=== PATIENT | male | born 1965 | race Caucasian/White ===

== ENCOUNTER 2017-06-16 03:57 | Emergency (ER) | payer MEDICAID ==
[2017-06-16 04:09] VITALS: TEMP 97
[2017-06-16] MEDS ORDERED: DILTIAZEM 125 MG in SODIUM CHLORIDE 0.9% 100 ML IV ONE (04:10)
[2017-06-16] MEDS ORDERED: DILTIAZEM 5 MG/ML 5 ML VIAL IVP STA ×3 (04:10→05:21)
--- NOTE | 2017-06-16 04:14 | ED ---
General Adult HPI - General Chief complaint: Arrhythmia/Palpitations Stated complaint: Palpitations Time Seen by Provider: 06/16/17 04:07 Source: patient, family, RN notes reviewed Mode of arrival: wheelchair Limitations: no limitations - History of Present Illness Initial comments: Patient is a pleasant 81-year-old male presenting to the emergency Department with help patient's. Onset was a couple of hours ago while in bed. Patient feels his heart racing and flipping. Patient has had similar symptoms previously associated atrial fibrillation/atrial flutter. Patient has mild discomfort of his upper chest. Patient occasionally has this associated with his atrial fibrillation. Patient feels slightly short of breath and lightheaded. - Related Data Allergies Allergy/AdvReac Type Severity Reaction Status Date / Time No Known Allergies Allergy Verified 06/16/17 04:13 Review of Systems ROS Statement: Those systems with pertinent positive or pertinent negative responses have been documented in the HPI. ROS Other: All systems not noted in ROS Statement are negative. Constitutional: Denies: fever Eyes: Denies: eye pain ENT: Denies: ear pain Respiratory: Reports: dyspnea. Denies: cough Cardiovascular: Reports: chest pain, palpitations Endocrine: Denies: fatigue Gastrointestinal: Denies: abdominal pain Genitourinary: Denies: dysuria Musculoskeletal: Denies: back pain Skin: Denies: rash Neurological: Denies: weakness General Exam Limitations: no limitations General appearance: alert, in no apparent distress Head exam: Present: atraumatic Eye exam: Present: normal appearance, PERRL ENT exam: Present: normal oropharynx Neck exam: Present: normal inspection Respiratory exam: Present: normal lung sounds bilaterally Cardiovascular Exam: Present: tachycardia, irregular rhythm Expanded Peripheral pulses: 2+: Dorsalis Pedis (R), Dorsalis Pedis (L) GI/Abdominal exam: Present: soft. Absent: tenderness Extremities exam: Present: normal inspection. Absent: pedal edema, calf tenderness Neurological exam: Present: alert Psychiatric exam: Present: normal affect, normal mood Skin exam: Present: normal color Course Vital Signs 06/16/17 06/16/17 06/16/17 04:05 04:34 04:55 Temperature 97.0 F L Pulse Rate 156 H 151 H 160 H Respiratory 16 18 18 Rate Blood Pressure 118/87 105/68 77/60 O2 Sat by Pulse 98 100 100 Oximetry 06/16/17 06/16/17 06/16/17 04:59 05:07 05:10 Temperature Pulse Rate 158 H 135 H 138 H Respiratory 18 18 18 Rate Blood Pressure 104/59 94/65 O2 Sat by Pulse 100 98 Oximetry 06/16/17 05:20 Temperature Pulse Rate 138 H Respiratory 16 Rate Blood Pressure 106/56 O2 Sat by Pulse 99 Oximetry EKG Findings - EKG Comments: EKG Findings:: A. fib with RVR, rate 150. QRS 92. QT 316. QTC 499. Normal axis. Normal QRS. Nonspecific ST-T. Medical Decision Making - Medical Decision Making Patient has been given Cardizem bolus and drip. Repeat bolus will be provided. Heart rate has improved somewhat to around 135. Patient with continued symptoms. Dr. Pal has been paged for admission for Dr. Betancourt. Patient states she sees Dr. Abernathy and he will be consult. - Lab Data Result diagrams: 06/16/17 04:10 06/16/17 04:10 Lab Results 06/16/17 06/16/17 06/16/17 Range/Units 04:10 04:10 04:10 WBC 7.7 (3.8-10.6) k/uL RBC 5.66 (4.30-5.90) m/uL Hgb 17.6 H (13.0-17.5) gm/dL Hct 50.5 (39.0-53.0) % MCV 89.2 (80.0-100.0) fL MCH 31.2 (25.0-35.0) pg MCHC 34.9 (31.0-37.0) g/dL RDW 13.3 (11.5-15.5) % Plt Count 245 (150-450) k/uL Neutrophils % 56 % Lymphocytes % 30 % Monocytes % 7 % Eosinophils % 3 % Basophils % 1 % Neutrophils # 4.2 (1.3-7.7) k/uL Lymphocytes # 2.3 (1.0-4.8) k/uL Monocytes # 0.5 (0-1.0) k/uL Eosinophils # 0.2 (0-0.7) k/uL Basophils # 0.1 (0-0.2) k/uL PT (9.0-12.0) sec INR (<1.2) APTT (22.0-30.0) sec Sodium 139 (137-145) mmol/L Potassium 4.3 (3.5-5.1) mmol/L Chloride 104 (98-107) mmol/L Carbon Dioxide 24 (22-30) mmol/L Anion Gap 11 mmol/L BUN 22 H (9-20) mg/dL Creatinine 1.00 (0.66-1.25) mg/dL Est GFR (MDRD) Af Amer >60 (>60 ml/min/1.73 sqM) Est GFR (MDRD) Non-Af >60 (>60 ml/min/1.73 sqM) Glucose 98 (74-99) mg/dL Calcium 10.6 H (8.4-10.2) mg/dL Magnesium 2.1 (1.6-2.3) mg/dL Total Bilirubin 0.6 (0.2-1.3) mg/dL AST 26 (17-59) U/L ALT 35 (21-72) U/L Alkaline Phosphatase 75 (38-126) U/L Total Creatine Kinase 59 (55-170) U/L CK-MB (CK-2) 0.5 (0.0-2.4) ng/mL CK-MB (CK-2) Rel Index 0.8 Troponin I <0.012 (0.000-0.034) ng/mL Total Protein 7.9 (6.3-8.2) g/dL Albumin 4.8 (3.5-5.0) g/dL Free T4 1.00 (0.78-2.19) ng/dL Free T3 pg/mL 3.9 (2.8-5.3) pg/ml 06/16/17 Range/Units 04:10 WBC (3.8-10.6) k/uL RBC (4.30-5.90) m/uL Hgb (13.0-17.5) gm/dL Hct (39.0-53.0) % MCV (80.0-100.0) fL MCH (25.0-35.0) pg MCHC (31.0-37.0) g/dL RDW (11.5-15.5) % Plt Count (150-450) k/uL Neutrophils % % Lymphocytes % % Monocytes % % Eosinophils % % Basophils % % Neutrophils # (1.3-7.7) k/uL Lymphocytes # (1.0-4.8) k/uL Monocytes # (0-1.0) k/uL Eosinophils # (0-0.7) k/uL Basophils # (0-0.2) k/uL PT 10.1 (9.0-12.0) sec INR 1.0 (<1.2) APTT 23.0 (22.0-30.0) sec Sodium (137-145) mmol/L Potassium (3.5-5.1) mmol/L Chloride (98-107) mmol/L Carbon Dioxide (22-30) mmol/L Anion Gap mmol/L BUN (9-20) mg/dL Creatinine (0.66-1.25) mg/dL Est GFR (MDRD) Af Amer (>60 ml/min/1.73 sqM) Est GFR (MDRD) Non-Af (>60 ml/min/1.73 sqM) Glucose (74-99) mg/dL Calcium (8.4-10.2) mg/dL Magnesium (1.6-2.3) mg/dL Total Bilirubin (0.2-1.3) mg/dL AST (17-59) U/L ALT (21-72) U/L Alkaline Phosphatase (38-126) U/L Total Creatine Kinase (55-170) U/L CK-MB (CK-2) (0.0-2.4) ng/mL CK-MB (CK-2) Rel Index Troponin I (0.000-0.034) ng/mL Total Protein (6.3-8.2) g/dL Albumin (3.5-5.0) g/dL Free T4 (0.78-2.19) ng/dL Free T3 pg/mL (2.8-5.3) pg/ml - Radiology Data Radiology results: image reviewed (Chest x-ray shows no acute process) Critical Care Time Critical Care Time: Yes Total Critical Care Time: 31 Disposition Clinical Impression: Atrial fibrillation with RVR Disposition: ADMITTED IP TO THIS [facility] Referrals: Maurizio Betancourt MD [Primary Care Provider] - 1-2 days Decision Time: 05:32
[2017-06-16 04:25] LABS: Basophils # (A) 0.1 k/uL (0-0.2); Basophils % (A) 1 %; CH 32.6; CHCM 36.7; Eosinophils # (A) 0.2 k/uL (0-0.7); Eosinophils % (A) 3 %; HCT 50.5 % (39.0-53.0); HDW 2.56; HGB 17.6 gm/dL (13.0-17.5); Luc # (Auto) 0.33; Luc % (Auto) 4; Lymphocytes # (A) 2.3 k/uL (1.0-4.8); Lymphocytes % (A) 30 %; MCH 31.2 pg (25.0-35.0); MCHC 34.9 g/dL (31.0-37.0); MCV 89.2 fL (80.0-100.0); Mean Platelet Volume 8.2; Monocytes # (A) 0.5 k/uL (0-1.0); Monocytes % (A) 7 %; Neutrophils # (A) 4.2 k/uL (1.3-7.7); Neutrophils % (A) 56 %; RBC 5.66 m/uL (4.30-5.90); RDW 13.3 % (11.5-15.5); WBC 7.7 k/uL (3.8-10.6)
[2017-06-16 04:36] LABS: ALT 35 U/L (21-72); AST 26 U/L (17-59); Alkaline Phosphatase 75 U/L (38-126); Anion Gap 11 mmol/L; Blood Urea Nitrogen 22 mg/dL (9-20); Calcium 10.6 mg/dL (8.4-10.2); Carbon Dioxide 24 mmol/L (22-30); Chloride 104 mmol/L (98-107); Glucose 98 mg/dL (74-99); Magnesium 2.1 mg/dL (1.6-2.3); Non-African American GFR(MDRD) >60 (>60 ml/min/1.73 sqM); Potassium 4.3 mmol/L (3.5-5.1); Prothrombin Time 10.1 sec (9.0-12.0); Sodium 139 mmol/L (137-145); Total Bilirubin 0.6 mg/dL (0.2-1.3); Total Protein 7.9 g/dL (6.3-8.2)
[2017-06-16 04:44] LABS: Creatine Kinase 59 U/L (55-170)
--- NOTE | 2017-06-16 04:47 | XR ---
EXAM: XR Chest, 1 View CLINICAL HISTORY: Reason: dysrhythmia TECHNIQUE: Frontal view of the chest. COMPARISON: No relevant prior studies available. FINDINGS: Lungs: Unremarkable. No consolidation. Pleural space: Unremarkable. No effusion or pneumothorax. Heart: Unremarkable. No cardiomegaly. Mediastinum: Within normal limits. Bones/joints: No acute osseous abnormality. Tiny ossific density projecting along the superior margin of the right glenohumeral joint may be a small intra-articular body and/or related to prior injury. IMPRESSION: No acute process is seen within the chest, as above.
[2017-06-16] MEDS ORDERED: SODIUM CHLORIDE 0.9% 1,000 ML IV ONE (04:54)
[2017-06-16 04:57] LABS: Creatine Kinase MB 0.5 ng/mL (0.0-2.4); Troponin I <0.012 ng/mL (0.000-0.034)
[2017-06-16] MEDS ORDERED: NITROGLYCERIN SL TABS 0.4 MG TAB SUBLINGUAL PRN (05:28)
[2017-06-16] MEDS ORDERED: HEPARIN SODIUM,PORCINE 5,000 UNIT/ML 1 ML VIAL IV PRN (05:30)
[2017-06-16] MEDS ORDERED: HEPARIN SODIUM,PORCINE 5,000 UNIT/ML 1 ML VIAL IV ONE (05:30)
[2017-06-16] MEDS ORDERED: HEPARIN SODIUM,PORCINE/D5W PMX 25,000 UNIT in DEXTROSE/WATER 1 500ML.BAG IV SCH (05:30)
[2017-06-16 05:34] VITALS: RESP 18
[2017-06-16 05:55] VITALS: BP 109/65; PULSE 128
[2017-06-17] MEDS ORDERED: ASPIRIN 325 MG TAB PO SCH (09:00)
== END 2017-06-16 06:51 | disposition left against medical advice (07) ==
LOC: EC 03:57 → 6SEL 05:28 → UNDOADMIN 05:28 → EC 06:51
DX: I48.91 Unspecified atrial fibrillation (principal); Z53.8 Procedure and treatment not carried out for other reasons
CPT/HCPCS: 36415; 71010; 80053; 82550; 82553; 83735; 84439; 84443; 84481; 84484; 85025; 85610; 85730; 93005; 96365; 96366; 96375; 96376; 99285; 99291

== ENCOUNTER → 2017-11-24 | Outpatient (CLI) | payer MEDICAID ==
[2017-11-24 16:56] LABS: HCT 47.3 % (39.0-53.0); HGB 15.5 gm/dL (13.0-17.5); MCH 30.2 pg (25.0-35.0); MCHC 32.8 g/dL (31.0-37.0); MCV 92.2 fL (80.0-100.0); Mean Platelet Volume 7.1; Platelet Count 216 k/uL (150-450); RBC 5.13 m/uL (4.30-5.90); RDW 11.5 % (11.5-15.5); WBC 4.6 k/uL (3.8-10.6)
[2017-11-24 17:15] LABS: Anion Gap 12 mmol/L; Blood Urea Nitrogen 21 mg/dL (9-20); Calcium 9.5 mg/dL (8.4-10.2); Carbon Dioxide 33 mmol/L (22-30); Chloride 97 mmol/L (98-107); Glucose 99 mg/dL (74-99); Potassium 4.1 mmol/L (3.5-5.1); Sodium 142 mmol/L (137-145)
== END | disposition home or self-care (01) ==
LOC: LABWHC1 16:32
PROVIDERS: ATTEND Internal Medicine Clinical Cardiac Electrophysiology
DX: I48.3 Typical atrial flutter (principal); I48.0 Paroxysmal atrial fibrillation
CPT/HCPCS: 36415; 80048; 85027

== ENCOUNTER 2017-12-03 06:11 | Day surgery (SDC) | payer MEDICAID ==
[2017-12-01 11:49] VITALS: BMI 26.5
[2017-12-03] MEDS: SODIUM CHLORIDE 0.9% 1,000 ML IV SCH (06:50)
[2017-12-03] MEDS ORDERED: PROTAMINE SULFATE 10 MG/ML 5 ML VIAL IV ONE (07:20)
[2017-12-03] MEDS ORDERED: LIDOCAINE 1% INJ 10MG/ML (20 ML MDV) ONE (07:20)
[2017-12-03] MEDS ORDERED: HYDROmorphone (PF) 1 MG/ML ONE (07:20)
[2017-12-03] MEDS ORDERED: HEPARIN SODIUM,PORCINE 5,000 UNIT/ML 1 ML VIAL ONE (07:20)
[2017-12-03] MEDS ORDERED: ePHEDrine SULFATE/0.9% NACL/PF 50 MG/5 ML SYRINGE IV ONE (07:20)
[2017-12-03] MEDS ORDERED: SUCCINYLCHOLINE CHLORIDE 100 MG/5 ML SYR IV ONE (07:20)
[2017-12-03] MEDS ORDERED: PHENYLEPHRINE-0.9% NACL SYG 1 MG/10 ML SYRINGE ONE (07:20)
[2017-12-03] MEDS ORDERED: HEPARIN SODIUM,PORCINE 10,000 UNIT/ML 1 ML VIAL ONE (07:20)
[2017-12-03] MEDS ORDERED: PROPOFOL 10 MG/ML 20 ML VIAL IV ONE (07:20)
[2017-12-03] MEDS ORDERED: MIDAZOLAM 2 MG/2 ML VIAL ONE (07:20)
[2017-12-03] MEDS ORDERED: fentaNYL (PF) 50 MCG/ML 2 ML AMP ONE (07:20)
[2017-12-03] MEDS ORDERED: ISOPROTERENOL 250 MCG/1.25 ML SYR IV ONE (07:20)
[2017-12-03] MEDS ORDERED: LIDOCAINE 2% INJ 20 MG/ML (20 ML MDV) ONE (07:41)
[2017-12-03] MEDS ORDERED: LIDOCAINE 2% INJ 20 MG/ML SQ ONE ×3 (08:10→08:13)
[2017-12-03] MEDS ORDERED: HEPARIN SOD,PORK IN 0.45% NACL 25,000 UNIT in 0.45% NACL 1 500ML.BAG IV ONE (08:21)
[2017-12-03] MEDS ORDERED: IOHEXOL 180 MG/ML 1 ML ML INJ ONE (10:36)
[2017-12-03] MEDS ORDERED: ACETAMINOPHEN IV (For NPO) 1,000 MG in EMPTY BAG 1 BAG IVPB ONE (10:55)
[2017-12-03] MEDS ORDERED: HYDROcodone/APAP 5-325MG 1 EACH TAB PO PRN (10:55)
--- NOTE | 2017-12-03 11:16 | P.PCN ---
Preoperative Diagnosis: Procedures performed (PVI - CRYO Ablation) Invasive hemodynamic monitoring while general anesthesia, right femoral arterial line for monitoring and sampling Comprehensive diagnostic EP study with attempted arrhythmia induction CS pacing and recording Drug infusion Catheter the mapping of the tachycardia (NOT 3D mapping) Intracardiac echocardiography Pulmonary vein isolation with transseptal and comprehensive EPS, [id number] Procedure details Patient was brought to the EP lab in a fasting state. Written informed consent was obtained prior to the procedure. Procedure performed under general anesthesia After initial muscle relaxant use, muscle relaxants were not given thereafter in order to assess phrenic nerve during procedure Patient prepped and draped as per protocol Full cryo-set up with standard preparation of the cryoablation tools done Femoral Venous access obtained on the right and left groins Sheaths placed Diagnostic catheters for the high right atrium, phrenic nerve stimulation and pacing, His bundle, RV and coronary sinus placed Intracardiac echo catheter placed Long sheath placed in the right atrium Left and right transseptal catheterization performed under intracardiac echo guidance Intravenous heparin with aCT above 300 Later, catheter positioning and balloon positioning under intracardiac echo Baseline measurements Sinus cycle length 1044 ms, OK interval 150 ms, QRS 101 ms and QT interval 373 ms. Sinus node recovery times at 600, 500, 400 ms were 907, 1048 and 907 ms. AH 48 ms, HV 50 ms AV node Wenckebach block 350 ms VA Wenckebach block 440 ms Comprehensive diagnostic EP study with drug infusion Atrial pacing performed from the high right atrium and the coronary sinus On high-dose Isuprel burst stimulation was performed from the coronary sinus no atrial fibrillation induced Transseptal catheterization performed RA pressure 18/10 LA pressure 17/7 Transseptal catheterization performed with standard sheath. The cryoablation sheath was then placed with an over the wire exchange without any acute complications. All 4 pulmonary veins were isolated in the following sequence: Left superior followed by left inferior followed by right superior followed by right inferior The cryo-ablation balloon was placed at the os of each vein 1.5 mL of IV dye was injected to confirm an occluded vein Goal during cryoablation was to achieve -30C in the first 30 seconds. If not the balloon was repositioned to obtain this result After completion of Cryoblation with durations from 180-240 seconds, entrance block was confirmed with the Attain circular catheter in a roving fashion around the antrum of the pulmonary veins Phrenic nerve pacing was performed from the SVC, right innominate vein area and diaphragm voltage was monitored as well as manually Parameter goals for each cryo freeze -30C by 30 seconds -40C by 60 seconds Mediated between minus 40-55 Thaw time greater than 10 seconds Balloon visualized by intracardiac echo to ensure that the proximal one third was within the left atrium/antrum Left superior pulmonary vein 4 minute cryoablation, successful isolation Left inferior pulmonary vein 3 minute cryoablation him a successful isolation. Prior to that to cryo lesions had to be terminated prematurely because of a rapid drop in balloon temperature, total 81 seconds Right superior pulmonary vein, during phrenic nerve pacing two cryo lesions 3 minutes each complete isolation Right inferior pulmonary vein, during phrenic nerve pacing 4 minute cryoablation, complete isolation At the end of the procedure the Achieve catheter was once again used to check for entrance block Phrenic nerve stimulation was performed to confirm diaphragmatic stimulation the end of the procedure Cine fluoroscopy was performed at the very end of the procedure to confirm movement of both diaphragms with inspiration and expiration At the end of the procedure the patient was extubated Heparin was reversed Venous sheaths were removed and hemostasis assured Result Successful pulmonary vein isolation using cryo-ablation Complete entrance block in all 4 veins confirmed No evidence for phrenic nerve injury Left-sided esophagus, esophagitis deflected to was the midline away from the left-sided veins, no significant drop in temperature in the esophagus as a result of this deflection Anesthesia: GETA Condition: stable
[2017-12-03] MEDS ORDERED: LACTATED RINGERS 1,000 ML IV ONE (11:30)
[2017-12-03] MEDS ORDERED: RX INFO: IV CONTRAST WAS GIVEN 1 EACH MISC MISCELLANE PRN (15:56)
[2017-12-03] MEDS: LACTATED RINGERS 1,000 ML IV SCH (16:00)
[2017-12-03] MEDS: FAMOTIDINE 20 MG/2 ML VIAL IV SCH (17:13)
[2017-12-03] MEDS: APIXABAN 5 MG TAB PO SCH (20:28)
[2017-12-03] MEDS: FLECAINIDE 50 MG TAB PO SCH (20:28)
[2017-12-03] MEDS: ACETAMINOPHEN TAB 325 MG TAB PO PRN (20:33)
[2017-12-04] MEDS: LACTATED RINGERS 1,000 ML IV SCH (01:35)
[2017-12-04] MEDS: SODIUM CHLORIDE 0.9% 1,000 ML IV SCH (01:35)
[2017-12-04 07:31] LABS: Anion Gap 8 mmol/L; Blood Urea Nitrogen 17 mg/dL (9-20); Calcium 8.7 mg/dL (8.4-10.2); Carbon Dioxide 29 mmol/L (22-30); Chloride 102 mmol/L (98-107); Glucose 94 mg/dL (74-99); Potassium 4.2 mmol/L (3.5-5.1); Sodium 139 mmol/L (137-145)
--- NOTE | 2017-12-04 08:09 | P.DS ---
Providers Attending physician: Dontrell Barrios Primary care physician: [facility] Course: Patient is ablating the hallways. He still has discomfort in the midchest and some difficulty while swallowing. He had similar symptoms last evening when I saw him. He is awaiting a CT of the chest with contrast to evaluate for any intrathoracic injury He is afebrile 98.5F pulse rate in the 80s blood pressure 116/65 mmHg Breath sounds are clear no rhonchi or crackles Abdomen soft nontender Heart sounds are normal no murmurs or gallop no rub Grams of he developed no hematoma Impression Paroxysmal symptomatic atrial fibrillation with RVR refractory to drug therapy Successful cryoablation of all 4 pulmonary veins No phrenic nerve injury Left-sided esophagus deflected to the midline, no significant drop in esophageal temperatures Atrial flutter with RVR drug refractory status post ablation in the past The isthmus conduction time was greater than 170 ms in either direction when re - interrogated during this EP study Plan ELIQUIS for 3 months 5 mg twice daily and then stop Continue flecainide 50 MG twice daily for 6-8 weeks then stop Patient Condition at Discharge: Stable Plan - Discharge Summary Discharge Rx Participant: Yes New Discharge Prescriptions: No Action Ibuprofen [Motrin] 400 mg PO Q6HR PRN PRN Reason: Pain Cholecalciferol [Vitamin D3] 1,000 unit PO DAILY Ascorbic Acid [Vitamin C] 500 mg PO DAILY Apixaban [Eliquis] 5 mg PO BID #60 tab Flecainide [Tambocor] 100 mg PO Q12HR #30 tablet Discharge Medication List Ascorbic Acid [Vitamin C] 500 mg PO DAILY 09/17/17 [History] Cholecalciferol [Vitamin D3] 1,000 unit PO DAILY 09/17/17 [History] Ibuprofen [Motrin] 400 mg PO Q6HR PRN 09/17/17 [History] Apixaban [Eliquis] 5 mg PO BID #60 tab 09/20/17 [Rx] Flecainide [Tambocor] 100 mg PO Q12HR #30 tablet 09/24/17 [Rx]
--- NOTE | 2017-12-04 08:46 | CT ---
EXAMINATION TYPE: CT chest w con DATE OF EXAM: 12/04/2017 COMPARISON: NONE HISTORY: Cardiac ablation for arrhythmia yesterday rule out esophageal injury or mediastinal air. CT DLP: 348.6 mGycm. Automated Exposure Control for Dose Reduction was Utilized. TECHNIQUE: CT scan of the thorax is performed following with IV Contrast, patient injected with 100 mL of Omnipaque 300. FINDINGS: LUNGS: There is some bilateral lower lobe linear scarring and/or atelectasis. No suspicious nodule or mass is identified bilaterally. No pleural effusion or pneumothorax is seen bilaterally. No suspicio us consolidation. Tracheobronchial tree is patent. MEDIASTINUM: There are no greater than 1 cm hilar or mediastinal lymph nodes. No cardiomegaly or pe ricardial effusion is seen. Coronary artery calcification is seen which is noted marker for coronary artery disease. No mediastinal air is evident. OTHER: There is simple appearing 2.5 cm cyst posteriorly upper pole level right kidney. Mild to moder ate multilevel spurring in the thoracic spine is present. IMPRESSION: No suspicious air or inflammatory change in the mediastinum. Bilateral lower lobe linear scarring and/or atelectasis. No suspicious acute pulmonary process.
[2017-12-04] MEDS: APIXABAN 5 MG TAB PO SCH (08:47)
[2017-12-04] MEDS: FLECAINIDE 50 MG TAB PO SCH (08:47)
[2017-12-04] MEDS: FAMOTIDINE 20 MG/2 ML VIAL IV SCH (08:48)
[2017-12-04] MEDS: ACETAMINOPHEN TAB 325 MG TAB PO PRN (09:38)
[2017-12-04 15:48] VITALS: BP 131/80; PULSE 84; RESP 17; TEMP 99.5
[2017-12-05] MEDS ORDERED: FAMOTIDINE 20 MG TAB PO SCH (09:00)
== END 2017-12-04 17:15 | disposition home or self-care (01) ==
LOC: CATHEP 06:11 → 3OBS 10:50 → CATHEP 12-04 17:15
PROVIDERS: ATTEND Internal Medicine Clinical Cardiac Electrophysiology
DX: I48.0 Paroxysmal atrial fibrillation (principal); I48.3 Typical atrial flutter; R00.0 Tachycardia, unspecified; I42.9 Cardiomyopathy, unspecified; E78.5 Hyperlipidemia, unspecified; G47.33 Obstructive sleep apnea (adult) (pediatric); Z82.49 Family history of ischemic heart disease and other diseases of the circulatory system; Z79.899 Other long term (current) drug therapy; Z79.01 Long term (current) use of anticoagulants
CPT/HCPCS: 93623; 93662; 93609; 93653; 85347; 80048; 71260; C1894 ×3; C1769 ×4; C1730 ×3; C1759; C1893; C1733; C1766; J2001 ×2; J2250; J2720; Q9965; J1644; J3010; J1170; Q9967; J0131; J2370; J0330; J2704

== ENCOUNTER → 2017-12-11 | Outpatient (CLI) | payer MEDICAID ==
[2017-12-11 14:34] LABS: Anion Gap 9 mmol/L; Blood Urea Nitrogen 21 mg/dL (9-20); Calcium 9.8 mg/dL (8.4-10.2); Carbon Dioxide 33 mmol/L (22-30); Chloride 98 mmol/L (98-107); Glucose 89 mg/dL (74-99); Potassium 4.1 mmol/L (3.5-5.1); Sodium 140 mmol/L (137-145)
[2017-12-11 15:14] LABS: Basophils # (A) 0.1 k/uL (0-0.2); Basophils % (A) 1 %; Eosinophils # (A) 0.1 k/uL (0-0.7); Eosinophils % (A) 1 %; HCT 42.4 % (39.0-53.0); HGB 14.4 gm/dL (13.0-17.5); Lymphocytes # (A) 1.7 k/uL (1.0-4.8); Lymphocytes % (A) 28 %; MCH 29.6 pg (25.0-35.0); MCHC 33.9 g/dL (31.0-37.0); MCV 87.4 fL (80.0-100.0); Mean Platelet Volume 7.3; Monocytes # (A) 0.4 k/uL (0-1.0); Monocytes % (A) 7 %; Neutrophils # (A) 3.6 k/uL (1.3-7.7); Neutrophils % (A) 59 %; Platelet Count 248 k/uL (150-450); RBC 4.85 m/uL (4.30-5.90); WBC 6.2 k/uL (3.8-10.6)
--- NOTE | 2017-12-11 15:50 | CT ---
EXAMINATION TYPE: CT angio thoracic/abd aorta DATE OF EXAM: 12/11/2017 COMPARISON: 12/04/2017 HISTORY: Aortic dissection and intrameural hematoma CT DLP: 724.1 mGycm. Automated Exposure Control for Dose Reduction was Utilized. CONTRAST: CT scan of the thorax, abdomen and pelvis is performed with IV Contrast, patient injected with 100 mL of Omnipaque 350. FINDINGS: LUNGS: There are multiple subpleural nodule seen posteriorly which measure less than 5 mm. Stable fro m the recent CT scan. There is no pleural effusion or pneumothorax seen. The tracheobronchial tree i s patent. MEDIASTINUM: Thoracic aorta enhances normally. No evidence of aneurysm or dissection. Pulmonary arter ies are suboptimally evaluated. Coronary artery calcification noted. OTHER: No additional significant abnormality is seen. LIVER/GB: Less than 5 mm hypodensity within the liver is too small to characterize.. PANCREAS: No significant abnormality is seen. SPLEEN: No significant abnormality is seen. ADRENALS: No significant abnormality is seen. KIDNEYS: Stable 2.5 cm indeterminate right renal lesion.. BOWEL: No significant abnormality is seen. LYMPH NODES: No greater than 1cm abdominal or pelvic lymph nodes are appreciated. OSSEOUS STRUCTURES: Hypertrophic and degenerative change of the spine noted.. OTHER: No significant additional abnormality is seen. IMPRESSION: 1. Stable 2.5 cm right renal indeterminate lesion. 2. No evidence of aortic aneurysm. 3. Multiple less than 5 mm subpleural pulmonary nodules recommend 6 month follow-up to confirm stabil ity.
--- NOTE | 2017-12-14 13:14 | ECHOF ---
Referral Reason:CP MEASUREMENTS -------- HEIGHT: 180.3 cm WEIGHT: 83.9 kg BP: RVIDd: 2.9 cm (< 3.3) IVSd: 1.3 cm (0.6 - 1.1) LVIDd: 4.8 cm (3.9 - 5.3) LVPWd: 1.1 cm (0.6 - 1.1) IVSs: 1.5 cm LVIDs: 3.5 cm LVPWs: 1.5 cm LAESV Index (A-L): 29.91 ml/m Ao Diam: 4.2 cm (2.0 - 3.7) AV Cusp: 2.4 cm (1.5 - 2.6) LA Diam: 4.2 cm (2.7 - 3.8) MV EXCURSION: 16.659 mm (> 18.000) MV EF SLOPE: 78 mm/s (70 - 150) EPSS: 0.6 cm MV E Thomas: 0.48 m/s MV DecT: 203 ms MV A Thomas: 0.44 m/s MV E/A Ratio: 1.09 RAP: 5.00 mmHg RVSP: 24.33 mmHg FINDINGS -------- Sinus rhythm. This was a technically good study. The left ventricular size is normal. Left ventricular wall thickness is normal. Overall left vent ricular systolic function is low-normal with, an EF between 50 - 55 %. The right ventricle is normal in size and function. LA is midly dilated 29-33ml/m2. The right atrium is normal in size. The aortic valve is trileaflet, and appears structurally normal. No aortic stenosis or regurgitation. Mild mitral regurgitation is present. Mild tricuspid regurgitation present. The right ventricular systolic pressure, as measured by Doppl er, is 24.33mmHg. Pulmonic valve appears structurally normal. The aortic root is moderately dilated measuring 4.2 cm Questionable intimal flap in the ascending ao rta The pericardium is normal. CONCLUSIONS -------- 1. Sinus rhythm. 2. This was a technically good study. 3. The left ventricular size is normal. 4. Left ventricular wall thickness is normal. 5. Overall left ventricular systolic function is low-normal with, an EF between 50 - 55 %. 6. The right ventricle is normal in size and function. 7. LA is midly dilated 29-33ml/m2. 8. The right atrium is normal in size. 9. The aortic valve is trileaflet, and appears structurally normal. No aortic stenosis or regurgitati on. 10. Mild mitral regurgitation is present. 11. Mild tricuspid regurgitation present. 12. The right ventricular systolic pressure, as measured by Doppler, is 24.33mmHg. 13. Pulmonic valve appears structurally normal. 14. The aortic root is moderately dilated measuring 4.2 cm 15. Questionable intimal flap in the ascending aorta 16. The pericardium is normal. EDUCATION INTERN: Lucie Avilez RDCS
== END | disposition home or self-care (01) ==
LOC: LABWHC1 12:15
PROVIDERS: ATTEND Internal Medicine Clinical Cardiac Electrophysiology
DX: R07.9 Chest pain, unspecified (principal); I48.91 Unspecified atrial fibrillation; R91.8 Other nonspecific abnormal finding of lung field
CPT/HCPCS: 93306; 80048; 85025; 75635; 71275; 93005; 36415; Q9967

== ENCOUNTER 2018-02-05 09:28 | Observation (INO) | payer MEDICAID ==
[2018-02-05] MEDS ORDERED: NITROGLYCERIN SL TABS 0.4 MG TAB SUBLINGUAL STA (10:04)
[2018-02-05] MEDS ORDERED: MORPHINE SULFATE 4 MG/ML SYRINGE IVP STA (10:04)
[2018-02-05] MEDS ORDERED: SODIUM CHLORIDE 0.9% 1,000 ML IV STA (10:04)
[2018-02-05] MEDS ORDERED: SODIUM CHLORIDE 0.9% 500 ML IV ONE (10:06)
--- NOTE | 2018-02-05 10:13 | ED ---
Chest Pain HPI - General Chief Complaint: Chest Pain Stated Complaint: Chest pain Time Seen by Provider: 02/05/18 09:50 Source: patient Mode of arrival: wheelchair Limitations: no limitations - History of Present Illness Initial Comments: 52 years old male comes in with the atrial fibrillation he had a chest pain and shortness of breath and his blood pressure dropped quite low and his said he almost passed out, is requesting to have some family and from the biomass power plant manager global marketing operations manager and I did page Dr. Nielsen, I spoke with him mom at 10:15 this morning him a he advised that we do a stat echo on him. He took his factor IX down twice this morning and numb he is on his statins as well as The van he has been very compliant with the period he denies any chest pain at the deep breaths no shortness of breath. He had an echocardiogram done back in December this year, devious system is otherwise unremarkable - Related Data Home Medications Medication Instructions Recorded Confirmed Pravastatin Sodium [Pravachol] 20 mg PO QAM 02/05/18 02/05/18 Previous Rx's Medication Instructions Recorded Apixaban [Eliquis] 5 mg PO BID #60 tab 09/20/17 Flecainide [Tambocor] 100 mg PO Q12HR #30 tablet 09/24/17 Allergies Allergy/AdvReac Type Severity Reaction Status Date / Time No Known Allergies Allergy Verified 02/05/18 10:27 Review of Systems ROS Statement: Those systems with pertinent positive or pertinent negative responses have been documented in the HPI. ROS Other: All systems not noted in ROS Statement are negative. EKG Findings - EKG Comments: EKG Findings:: EKG is a sinus tachycardia ventricular rate is 121, it's leads I am unable to identify the P waves but in other leads unable to identify the present, HI interval is 176 QRS duration is 110 QT/QTc is 342/485 review of this EKG reveals some ST depression in V2 V3 V4 V5 and V6 Past Medical History Past Medical History: Atrial Fibrillation, Atrial Flutter, Sleep Apnea/CPAP/ BIPAP Additional Past Medical History / Comment(s): See Dr Barrios's H&P,CARMELLA,no cpap, aortic aneurysm History of Any Multi-Drug Resistant Organisms: None Reported Past Surgical History: Cardiac Ablation, Tonsillectomy Additional Past Surgical History / Comment(s): a flutter ablation 09/24/17 Past Anesthesia/Blood Transfusion Reactions: Motion Sickness Past Psychological History: No Psychological Hx Reported Smoking Status: Never smoker Past Alcohol Use History: Occasional Past Drug Use History: None Reported - Past Family History Father Family Medical History: Cancer, Myocardial Infarction ([place]) Additional Family Medical History / Comment(s): jb VELA's General Exam - General Exam Comments Initial Comments: General: The patient is awake and alert, in no distress, and does not appear acutely ill. Quite anxious Skin: Skin is warm and dry and no rashes or lesions are noted. Eye: Pupils are equal, round and reactive to light, extra-ocular movements are intact; there is normal conjunctiva bilaterally. Ears, nose, mouth and throat: There are moist mucous membranes and no oral lesions. Neck: The neck is supple, there is no tenderness or JVD. Cardiovascular: There is a regular rate and rhythm. No murmur, rub or gallop is appreciated. Respiratory: To auscultation bilateral, no wheezing no rhonchi no distress respiratory rowland noticed Gastrointestinal: Soft, non-distended, non-tender abdomen without masses or organomegaly noted. There is no rebound or guarding present. Bowel sounds are unremarkable. Back: There is no tenderness to palpation in the midline. There is no obvious deformity. Musculoskeletal: Normal ROM, no tenderness, There is no pedal edema. There is no calf tenderness or swelling. No cords were appreciated. Neurological: CN II-XII intact, Cranial nerves III through XII are intact. There are no obvious motor or sensory deficits. Coordination appears grossly intact. Speech is normal. Psychiatric: Cooperative, appropriate mood & affect, normal judgment. Limitations: no limitations Course Vital Signs 02/05/18 02/05/18 02/05/18 09:28 09:31 09:51 Temperature 97.8 F Pulse Rate 120 H 114 H Respiratory 18 16 Rate Blood Pressure 65/43 159/68 124/62 O2 Sat by Pulse 98 99 Oximetry Critical Care Time Total Critical Care Time: 30 Critical Care Time: Centering is a history of firm atrial flutter and chest pain and numb history of for aortic aneurysm and descending aorta and some EKG changes I did talk to biomass power plant manager global marketing operations manager and now Dr. prajapati seen him in the ER , since he had a sinus tachycardia and he had a flecainide 2 doses this morning I didn't feel it was a pretty 90 given him any agents to slow him down he needs further evaluation we ordered a stat echo his blood pressure has come up he was initially very low and he almost passed out not sure whether that was a syncope episode this was a cardiac episode he had no headaches there is no signs of any neuro deficits Disposition Clinical Impression: Chest pain, Hypotension Disposition: ADMITTED IP TO THIS HOSP Condition: Good Referrals: Joi Aguilera MD [Primary Care Provider] - 1-2 days
[2018-02-05 10:24] LABS: Partial Thromboplastin Time 24.7 sec (22.0-30.0)
[2018-02-05 10:25] LABS: Basophils % (A) 1 %; Eosinophils # (A) 0.1 k/uL (0-0.7); Eosinophils % (A) 1 %; HCT 47.2 % (39.0-53.0); Lymphocytes # (A) 1.7 k/uL (1.0-4.8); Lymphocytes % (A) 25 %; MCH 30.8 pg (25.0-35.0); MCV 85.7 fL (80.0-100.0); Mean Platelet Volume 7.3; Monocytes # (A) 0.4 k/uL (0-1.0); Monocytes % (A) 6 %; Neutrophils # (A) 4.6 k/uL (1.3-7.7); Neutrophils % (A) 64 %; Platelet Count 246 k/uL (150-450); RDW 11.9 % (11.5-15.5); WBC 7.1 k/uL (3.8-10.6)
[2018-02-05 10:31] LABS: ALT 17 U/L (21-72); AST 19 U/L (17-59); Albumin 4.5 g/dL (3.5-5.0); Alkaline Phosphatase 71 U/L (38-126); Anion Gap 16 mmol/L; Blood Urea Nitrogen 17 mg/dL (9-20); Calcium 9.9 mg/dL (8.4-10.2); Carbon Dioxide 23 mmol/L (22-30); Chloride 104 mmol/L (98-107); Glucose 111 mg/dL (74-99); Potassium 4.2 mmol/L (3.5-5.1); Sodium 143 mmol/L (137-145); Total Bilirubin 0.5 mg/dL (0.2-1.3); Total Protein 7.1 g/dL (6.3-8.2)
[2018-02-05 10:40] LABS: Creatine Kinase 74 U/L (55-170)
[2018-02-05 10:51] LABS: Creatine Kinase MB 0.4 ng/mL (0.0-2.4); Troponin I <0.012 ng/mL (0.000-0.034)
[2018-02-05] MEDS ORDERED: NITROGLYCERIN SL TABS 0.4 MG TAB SUBLINGUAL PRN ×2 (11:09→14:34)
[2018-02-05] MEDS ORDERED: METOPROLOL SUCCINATE (ER) 25 MG TAB.ER.24H PO STA (11:26)
--- NOTE | 2018-02-05 12:31 | ECHOF ---
Referral Reason:Rule out any wall motion abnormality, MEASUREMENTS -------- HEIGHT: 177.8 cm WEIGHT: 82.6 kg BP: 125/96 RVIDd: 3.0 cm (< 3.3) IVSd: 1.0 cm (0.6 - 1.1) LVIDd: 5.0 cm (3.9 - 5.3) LVPWd: 1.0 cm (0.6 - 1.1) IVSs: 1.6 cm LVIDs: 3.1 cm LVPWs: 1.4 cm LA Diam: 4.0 cm (2.7 - 3.8) LAESV Index (A-L): 19.78 ml/m Ao Diam: 4.0 cm (2.0 - 3.7) AV Cusp: 2.2 cm (1.5 - 2.6) EPSS: 0.5 cm RAP: 5.00 mmHg RVSP: 21.21 mmHg MV EF SLOPE: 305.36 mm/s (70 - 150) MV EXCURSION: 1.84 cm (> 18.000) FINDINGS -------- Irrigular rhythm. This was a technically good study. The left ventricular size is normal. Left ventricular wall thickness is normal. Overall left vent ricular systolic function is mildly impaired with, an EF between 45 - 50 %. The right ventricle is normal in size. Normal LA size by volume 22+/-6 ml/m2. The right atrium is normal in size. The aortic valve is trileaflet and appears structurally normal. Trace to mild aortic regurgitation. The mitral valve is normal. Mild tricuspid regurgitation present. Right ventricular systolic pressure is normal at < 35 mmHg. Trace/mild (physiologic) pulmonic regurgitation. The aortic root is dilated measuring 4.0cm. Normal inferior vena cava with normal inspiratory collapse consistent with estimated right atrial pre ssure of 5 mmHg. There is no pericardial effusion. CONCLUSIONS -------- 1. Irrigular rhythm. 2. This was a technically good study. 3. The left ventricular size is normal. 4. Left ventricular wall thickness is normal. 5. Overall left ventricular systolic function is mildly impaired with, an EF between 45 - 50 %. 6. The right ventricle is normal in size. 7. Normal LA size by volume 22+/-6 ml/m2. 8. The right atrium is normal in size. 9. The aortic valve is trileaflet and appears structurally normal. 10. Trace to mild aortic regurgitation. 11. The mitral valve is normal. 12. Mild tricuspid regurgitation present. 13. Right ventricular systolic pressure is normal at < 35 mmHg. 14. Trace/mild (physiologic) pulmonic regurgitation. 15. The aortic root is dilated measuring 4.0cm. 16. Normal inferior vena cava with normal inspiratory collapse consistent with estimated right atrial pressure of 5 mmHg. 17. There is no pericardial effusion. DISPATCH SUPERVISOR: RAE Zuniga
[2018-02-05] MEDS ORDERED: PROPOFOL 10 MG/ML 20 ML VIAL IV ONE (14:18)
[2018-02-05] MEDS: SODIUM CHLORIDE 0.9% 1,000 ML IV SCH ×3 (14:28→17:46)
[2018-02-05] MEDS ORDERED: SODIUM CHLORIDE 0.9% 1,000 ML in EMPTY BAG 1 BAG IV ONE (14:34)
[2018-02-05] MEDS ORDERED: ATORVASTATIN 80 MG TAB PO STA (14:34)
[2018-02-05] MEDS ORDERED: ASPIRIN 325 MG TAB PO STA (14:34)
[2018-02-05] MEDS ORDERED: ALPRAZolam 0.25 MG TAB PO PRN (14:34)
[2018-02-05] MEDS ORDERED: ALPRAZolam 0.5 MG TAB PO PRN (14:34)
--- NOTE | 2018-02-05 15:26 | CONS ---
CONSULTATION Mr. Neves is a 52-year-old gentleman who is seen for cardiac evaluation. Patient's history is reviewed. This patient has a history of ablation for atrial flutter in September and in the December he had atrial ablation for atrial fibrillation. Cryoablation was done. Patient had been doing well. Patient has been on flecainide 100 mg b.i.d. This morning around 3 to 4:00 patient felt heart palpitations. He took extra flecainide early in the morning. It did not work. Subsequently, he took his regular dose of flecainide in the morning and as the patient was not feeling well, he was also having some chest discomfort and dizziness, so he came to the emergency room. In the emergency room, patient almost passed out. His blood pressure initially was 60. Patient was given fluids and subsequently he felt better. Patient gives a history that he has been having some vague chest discomfort all the time since his cardioversion. He has a mildly dilated aortic root, about 4 cm. He was seen by a cardiothoracic surgeon at [facility] and patient was advised medical treatment. Patient also has a history of hyperlipidemia, there is no history of diabetes or hypertension. HOME MEDICATIONS: Include Pravachol 20 mg daily, Eliquis 5 mg b.i.d., flecainide 100 mg a b.i.d. REVIEW OF THE SYSTEM: Otherwise unremarkable. PAST MEDICAL HISTORY: Includes history of aortic root dilatation, cardiac ablation for atrial fibrillation and flutter and tonsillectomy. SMOKING HISTORY: Never a smoker. FAMILY HISTORY: Positive for myocardial infarction. PHYSICAL EXAMINATION: At present reveals a 52-year-old gentleman who at present does not appear to be in any acute distress. Patient's blood pressure now is 124/62 mmHg. In the emergency room, initially blood pressure was 65. HEENT examination is negative. Neck is supple. There is no increase in jugular venous pressure. Both the carotid pulses are felt. There is no bruit. Chest is symmetrical. Heart, the PMI is not felt. First and second heart sounds are normal. There is no evidence of any murmur. Lungs are clinically clear to auscultation and percussion. Abdomen is soft. Liver and spleen are not enlarged. Extremities, peripheral pulsations are 2+. This patient's initial EKG shows evidence of atrial tachycardia, but there is a horizontal ST-segment depression from V2 to V6 which is suggestive of possible ischemia. Previous EKG's are reviewed, during atrial fibrillation or atrial flutter and sinus rhythm, no ST-segment depression has been noted in the past. This raises the possibility to rule out underlying ischemic heart disease. FINAL IMPRESSION: This elderly patient has an atrial tachycardia. Patient has electrocardiographic changes suggestive of ischemia, rule out underlying significant coronary artery disease. I discussed the patient's condition with Dr. Barrios also. This patient had a problem with IV Cardizem in the past. In view of that, we will proceed with a cardioversion and patient will be considered for cardiac catheterization after 24-48 hours as the patient has been taking Eliquis. Patient was fully explained about the procedure and risks and he understands well. We will continue the patient on flecainide 100 mg b.i.d., and Eliquis we will put on hold. Will be started on a small dose of heparin after 6 hours. MMODL / IJN: [id number] /
[2018-02-05 16:10] LABS: Creatine Kinase 66 U/L (55-170)
[2018-02-05 16:21] LABS: Creatine Kinase MB 0.4 ng/mL (0.0-2.4); Troponin I <0.012 ng/mL (0.000-0.034)
[2018-02-05] MEDS ORDERED: DEXTROSE/WATER 1 500ML.BAG with HEPARIN SODIUM,PORCINE/D5W PMX 25,000 UNIT IV SCH (18:00)
--- NOTE | 2018-02-05 19:26 | XR ---
EXAMINATION: XR chest 2V DATE AND TIME: 02/05/2018 6:48 PM ORDERING PROVIDER: Mahi Desai CLINICAL INDICATION: Chest Pain TECHNIQUE: PA and lateral COMPARISON: 09/17/2017 DESCRIPTION: The lungs are clear. The pleural spaces are negative. The cardiac silhouette is not enlarged. The mediastinal and pleural silhouettes are unremarkable. The skeletal structures are intact without focal findings. The soft tissues are unremarkable. IMPRESSION: NO ACUTE PROCESS.
[2018-02-05] MEDS: FLECAINIDE 50 MG TAB PO SCH (20:29)
[2018-02-05] MEDS ORDERED: APIXABAN 5 MG TAB PO SCH (21:00)
[2018-02-05 22:02] LABS: Creatine Kinase 49 U/L (55-170)
[2018-02-05 22:14] LABS: Creatine Kinase MB 0.4 ng/mL (0.0-2.4); Troponin I <0.012 ng/mL (0.000-0.034)
--- NOTE | 2018-02-05 22:51 | P.HPIM ---
History of Present Illness H&P Date: 02/05/18 Chief Complaint: Dizziness Patient is a 50-year-old male with a known history of hyperlipidemia, obstructive sleep apnea on CPAP, atrial fibrillation/flutter on anticoagulation with recent flutter ablation in September 2017 and cryoablation on 12/03/2017 came to ER with complaints of chest tightness, shortness of breath and dizziness along with low blood pressure. Sometimes radiation to the left arm. No diaphoresis. Patient says that he woke up in the morning and felt very dizzy and funny symptoms. Patient took. Extra dose of flecainide around 4:30 AM in the morning and he did take another dose at 8 AM without improvement in symptoms. His blood pressure was very low and increased heart rate when checked at home and patient felt very dizzy and almost passed out. Patient was brought to the hospital by his . Patient was seen by cardiology and patient underwent cardioversion today and currently patient is in sinus rhythm. EKG showed ST depression in the lateral leads and cardiology recommended cardiac catheterization which is scheduled for tomorrow. Currently patient says that his dizziness is much improved after cardioversion. No complaints of chest pain. No nausea vomiting or abdominal pain. 2-D echocardiogram showed ejection fraction 40-45% Patient does have family history of coronary artery disease in his father with CA at age 42 and at age 53 Review of Systems Constitutional: Patient denies any fever or chills . No generalized weakness or weight loss. Abdomen: Patient denied nausea vomiting and diarrhea and abdominal pain. Cardiovascular: Patient denies any chest pain or short of breath no palpitations. Respiratory: patient denied any cough is from production. No shortness of breath Neurologic: Patient denied any numbness or tingling headache. Musculoskeletal: Patient denies any complaints of joint swelling or deformity. Skin: Negative Psychiatric: Negative Endocrine: No heat or cold intolerance. No recent weight gain. Genitourinary: No dysuria or hematuria. All other 14 point ROS negative except the above Past Medical History Past Medical History: Atrial Fibrillation, Atrial Flutter, Hyperlipidemia, Sleep Apnea/CPAP/BIPAP Additional Past Medical History / Comment(s): CARMELLA without device, aortic aneurysm. History of Any Multi-Drug Resistant Organisms: None Reported Past Surgical History: Cardiac Ablation, Tonsillectomy Additional Past Surgical History / Comment(s): A fib ablation 12/03/17, A flutter ablation 09/24/17 Past Anesthesia/Blood Transfusion Reactions: No Reported Reaction Smoking Status: Never smoker - Past Family History Father Family Medical History: Cancer, Myocardial Infarction (CA) Additional Family Medical History / Comment(s): Father had a CA at the age of 43yrs and of a CA at the age of 53yrs. Mother Family Medical History: Cancer Additional Family Medical History / Comment(s): Mother from a rare type cancer in her small bowel. Medications and Allergies Home Medications Medication Instructions Recorded Confirmed Type Apixaban [Eliquis] 5 mg PO BID #60 tab 09/20/17 02/05/18 Rx Flecainide [Tambocor] 100 mg PO Q12HR #30 tablet 09/24/17 02/05/18 Rx Pravastatin Sodium [Pravachol] 20 mg PO QAM 02/05/18 02/05/18 History Allergies Allergy/AdvReac Type Severity Reaction Status Date / Time No Known Allergies Allergy Verified 02/05/18 10:27 Physical Exam Vitals: Vital Signs Temp Pulse Pulse Resp BP BP Pulse Ox 02/05/18 17:00 97.3 F L 77 16 106/72 96 02/05/18 16:45 16 103/72 96 02/05/18 15:45 72 20 103/72 94 L 02/05/18 15:30 76 16 104/68 95 02/05/18 15:15 74 16 102/74 92 L 02/05/18 15:00 77 16 106/74 95 02/05/18 14:45 79 16 105/70 97 02/05/18 14:31 97.4 F L 71 14 99/56 97 02/05/18 14:17 122 H 16 90/61 98 02/05/18 12:49 120 H 16 120/81 99 02/05/18 11:46 128 H 16 124/83 98 02/05/18 09:51 114 H 16 124/62 99 02/05/18 09:31 97.8 F 120 H 18 159/68 98 02/05/18 09:28 65/43 Intake and Output 02/05/18 02/05/18 02/05/18 06:59 14:59 22:59 Intake Total 100 200 Balance 100 200 Intake: IV 100 Oral 200 Other: Voiding Method Toilet Weight 82.554 kg PHYSICAL EXAMINATION: Patient is lying in the bed comfortably, no acute distress, awake alert and oriented.. HEENT: Normocephalic. Neck is supple. Pupils reactive. Nostrils clear. Oral cavity is moist. Ears reveal no drainage. Neck reveals no JVD, carotid bruits, or thyromegaly. CHEST EXAMINATION: Trachea is central. Symmetrical expansion. Lung cordoba clear to auscultation and percussion. CARDIAC: Normal S1, S2 with no gallops. No murmurs ABDOMEN: Soft. Bowel sounds normal. No organomegaly. No abdominal bruits. Extremities: reveal no edema. No clubbing or cyanosis Neurologically awake, alert, oriented x3 with well-coordinated movements. No focal deficits noted Skin: No rash or skin lesions. Psychiatric: Coperative. Nonsuicidal Musculoskeletal: No joint swelling or deformity. Normal range of motion. Results CBC & Chem 7: 02/05/18 09:45 02/05/18 09:45 Labs: Abnormal Lab Results - Last 24 Hours (Table) 02/05/18 Range/Units 09:45 Glucose 111 H (74-99) mg/dL ALT 17 L (21-72) U/L Thrombosis Risk Factor Assmnt - Choose All That Apply Any of the Below Risk Factors Present?: Yes Each Factor Represents 1 point: Age 41-60 years, Obesity (BMI >25) Other Risk Factors: No Other congenital or acquired thrombophilia - If yes, enter type in comment: No Thrombosis Risk Factor Assessment Total Risk Factor Score: 2 Thrombosis Risk Factor Assessment Level: Low Risk Assessment and Plan Assessment: Atrial tachycardia. Currently in sinus rhythm after cardioversion ST-T wave depression History of atrial fibrillation/flutter status post ablation in September 2017 and December 2017 Hyperlipidemia Family history of coronary artery disease Obstructive sleep apnea on CPAP at home Cardiomyopathy ejection fraction 40-45% Plan: Patient will be continued on aspirin statins and metoprolol. Heart rate is controlled now. Cardiology is planning for cardiac catheterization tomorrow. Continue with telemetry monitoring. Further recommendations based on the clinical course. Time with Patient: Greater than 30
[2018-02-06 07:07] LABS: Cholesterol 229 mg/dL (<200); HDL Cholesterol 56 mg/dL (40-60); LDL Cholesterol,Calculated 127 mg/dL (0-99); Triglycerides 232 mg/dL (<150)
[2018-02-06] MEDS: FLECAINIDE 50 MG TAB PO SCH (07:07)
[2018-02-06] MEDS ORDERED: VERAPAMIL 2.5 MG/ML 2 ML AMP ONE (07:14)
[2018-02-06] MEDS ORDERED: LIDOCAINE 2% INJ 20 MG/ML (20 ML MDV) ONE (07:14)
[2018-02-06] MEDS ORDERED: SODIUM CHLORIDE 0.9% 500 ML IV ONE (07:20)
[2018-02-06] MEDS ORDERED: HEPARIN SODIUM 1,000 UN/ML (10ML VL) ONE (07:28)
[2018-02-06] MEDS ORDERED: MIDAZOLAM 2 MG/2 ML VIAL ONE (07:28)
[2018-02-06] MEDS ORDERED: MIDAZOLAM 2 MG/2 ML VIAL IV ONE (07:34)
[2018-02-06] MEDS ORDERED: LIDOCAINE 2% INJ 20 MG/ML SQ ONE (07:35)
[2018-02-06] MEDS: VERAPAMIL SYRINGE (5 MG/10 ML) INTRAARTER ONE ×2 (07:38→07:48)
[2018-02-06] MEDS ORDERED: HEPARIN SODIUM 1,000 UN/ML (10ML VL) IV ONE (07:40)
[2018-02-06] MEDS ORDERED: IOPAMIDOL-370 125ML BTL INJ ONE (07:48)
[2018-02-06 07:52] VITALS: TEMP 97.7
[2018-02-06] MEDS ORDERED: RX INFO: IV CONTRAST WAS GIVEN 1 EACH MISC MISCELLANE PRN (07:54)
[2018-02-06] MEDS ORDERED: SODIUM CHLORIDE 0.9% 1,000 ML IV SCH (08:00)
[2018-02-06] MEDS ORDERED: PRAVASTATIN SODIUM 20 MG TAB PO SCH (09:00)
[2018-02-06] MEDS ORDERED: ASPIRIN 81 MG PO SCH (09:00)
[2018-02-06] MEDS ORDERED: ASPIRIN 325 MG TAB PO SCH (09:00)
[2018-02-06 09:32] VITALS: RESP 16
--- NOTE | 2018-02-06 10:15 | CC ---
CARDIAC CATHETERIZATION REPORT DATE OF SERVICE: 02/06/2018 PERFORMING PHYSICIAN: Darien Rodriguez MD, supervisor polishing. PROCEDURE PERFORMED: Selective right and left coronary angiogram. INDICATION: This is a pleasant 52-year-old gentleman who presented to the hospital with SVT. He does have paroxysmal atrial fibrillation. He had EKG changes concerning for ischemia. The patient was seen and evaluated by Dr. Benson who recommended heart catheterization to rule out any severe underlying coronary artery disease. The patient does have significant family history of coronary artery disease. APPROACH: Right radial artery. COMPLICATION: None. LEVEL OF SEDATION: Moderate with sedation length of 15 minutes. PROCEDURE DESCRIPTION: After obtaining an informed consent, the patient was brought to the cardiac medical laboratory scientist. The right radial artery was cannulated using micropuncture technique and a micropuncture wire passed easily, then I placed a 6-Persian sheath in the right radial artery subsequently gave the patient 2 mg of verapamil IA and 8000 units of heparin IV. After that, selective right and left coronary angiogram was performed using JR4 and JL3.5 catheters. The procedure was completed without any complication. SELECTIVE CORONARY ANGIOGRAM: 1. The right coronary artery is a large caliber vessel and it is a dominant vessel. It is angiographically normal. It bifurcates into PDA and PLV branches, both are angiographically normal. 2. The left main is angiographically normal. It bifurcates into the left circumflex and ramus intermedius, and left anterior descending artery. 3. The left circumflex is a large caliber vessel. It is a nondominant vessel. Left circumflex system is angiographically normal and gives rise into 2 OM branches, both are angiographically normal. 4. The ramus intermedius is a moderate caliber vessel and is angiographically normal as well. 5. The LAD: The proximal LAD appeared to be angiographically normal. It gives rise into a large septal funding analyst branch. The mid LAD is normal. Gives rise into second diagonal branch which seems to be angiographically normal. The LAD distally is angiographically normal. CONCLUSION: Normal coronary angiogram. POSTPROCEDURE MANAGEMENT: Medical treatment and follow up with the patient. MMODL / IJN: [id number] /
--- NOTE | 2018-02-06 10:24 | LTR ---
DATE OF SERVICE: 02/06/2018 RE: Rene Neves Dear Dr. Aguilera: Mr. Rene Neves underwent a heart catheterization today and that revealed normal coronaries. Thank you for allowing us to participate in his care and please do not hesitate to call if you have any question or concern. Sincerely, MD LIBERTAD Bustillos / SEDRICK: [id number] /
[2018-02-06 11:03] VITALS: BP 108/67; PULSE 72
--- NOTE | 2018-02-06 12:54 | PN ---
PROGRESS NOTE This patient was admitted with atrial tachycardia and underwent cardioversion. Patient remains in normal sinus rhythm. Patient underwent cardiac catheterization this morning. No coronary artery disease was detected. Patient has a history of hyperlipidemia. Patient has tried probably Lipitor and Crestor in the past but he could not tolerate it. Currently, he is on Pravachol 20 mg daily. His LDL level is 127. Patient does have some T-wave inversions in V1, V2 and V3. Patient is advised to restart the Eliquis from today in the evening and patient can be discharged home on flecainide and the Eliquis. MMODL / IJN: [id number] /
--- NOTE | 2018-02-06 22:57 | P.DS ---
Providers Date of admission: 02/05/18 11:16 Expected date of discharge: 02/06/18 Attending physician: Keegan Tejada Consults: 02/05/18 11:09 Consult Physician Urgent Consulting Provider: Sekou Benson Consult Reason/Comments: Chest pain Do you want consulting provider notified?: Yes Primary care physician: John Paul Jones Hospital Course: Discharge diagnosis Atrial tachycardia. Currently in sinus rhythm after cardioversion ST-T wave depression. Status post normal cardiac catheterization History of atrial fibrillation/flutter status post ablation in September 2017 and December 2017 Hyperlipidemia Family history of coronary artery disease Obstructive sleep apnea on CPAP at home Cardiomyopathy ejection fraction 40-45% Hospital course Patient is a 50-year-old male with a known history of hyperlipidemia, obstructive sleep apnea on CPAP, atrial fibrillation/flutter on anticoagulation with recent flutter ablation in September 2017 and cryoablation on 12/03/2017 came to ER with complaints of chest tightness, shortness of breath and dizziness along with low blood pressure. Sometimes radiation to the left arm. No diaphoresis. Patient says that he woke up in the morning and felt very dizzy and funny symptoms. Patient took. Extra dose of flecainide around 4:30 AM in the morning and he did take another dose at 8 AM without improvement in symptoms. His blood pressure was very low and increased heart rate when checked at home and patient felt very dizzy and almost passed out. Patient was brought to the hospital by his . Patient was seen by cardiology and patient underwent cardioversion today and currently patient is in sinus rhythm. EKG showed ST depression in the lateral leads and cardiology recommended cardiac catheterization which is scheduled for tomorrow. Currently patient says that his dizziness is much improved after cardioversion. No complaints of chest pain. No nausea vomiting or abdominal pain. 2-D echocardiogram showed ejection fraction 40-45% Patient does have family history of coronary artery disease in his father with KS at age 42 and at age 53 Patient was continued on aspirin statins and metoprolol. Status post cardioversion. Heart rate is controlled now. Cardiology did cardiac catheterization which showed normal coronaries.. Otherwise patient is stable to be discharged home. Discharge physical examination was done and vitals reviewed . Vital Signs - 24 hr 02/06/18 02/06/18 02/06/18 00:00 04:00 08:00 Temperature 97.0 F L 97.7 F Pulse Rate [ 68 Fisheries Biologist ] Pulse Rate [ Pulse Oximetery ] Pulse Rate [ 72 Right Supine Radial] Respiratory 16 18 16 Rate Blood Pressure 91/67 102/72 [Right Arm] 02/06/18 02/06/18 02/06/18 08:09 08:24 08:39 Temperature Pulse Rate [ Fisheries Biologist ] Pulse Rate [ 69 67 67 Pulse Oximetery ] Pulse Rate [ Right Supine Radial] Respiratory 16 16 16 Rate Blood Pressure 106/70 106/72 103/65 [Right Arm] 02/06/18 02/06/18 02/06/18 09:09 09:39 10:39 Temperature Pulse Rate [ Fisheries Biologist ] Pulse Rate [ 67 69 72 Pulse Oximetery ] Pulse Rate [ Right Supine Radial] Respiratory 16 16 16 Rate Blood Pressure 103/65 110/64 108/67 [Right Arm] 02/06/18 11:42 Temperature Pulse Rate [ Fisheries Biologist ] Pulse Rate [ Pulse Oximetery ] Pulse Rate [ Right Supine Radial] Respiratory 16 Rate Blood Pressure [Right Arm] Patient Condition at Discharge: Good Plan - Discharge Summary Discharge Rx Participant: No New Discharge Prescriptions: Continue Apixaban [Eliquis] 5 mg PO BID #60 tab Flecainide [Tambocor] 100 mg PO Q12HR #30 tablet Pravastatin Sodium [Pravachol] 20 mg PO QAM Discharge Medication List Apixaban [Eliquis] 5 mg PO BID #60 tab 09/20/17 [Rx] Flecainide [Tambocor] 100 mg PO Q12HR #30 tablet 09/24/17 [Rx] Pravastatin Sodium [Pravachol] 20 mg PO QAM 02/05/18 [History] Follow up Appointment(s)/Referral(s): Darien Rodriguez MD [STAFF PHYSICIAN] - 1 Week Joi Aguilera MD [Primary Care Provider] - 1-2 days Patient Instructions/Handouts: After Radial Heart Catheterization (GEN) Discharge Disposition: HOME SELF-CARE
== END 2018-02-06 14:22 | disposition home or self-care (01) ==
LOC: EC 09:28 → 3OBS 11:16 → 6SEL 13:03
PROVIDERS: ADMIT Hospitalist; ATTEND Hospitalist
DX: I47.1 Supraventricular tachycardia (principal); I48.0 Paroxysmal atrial fibrillation; I48.92 Unspecified atrial flutter; E78.5 Hyperlipidemia, unspecified; I42.9 Cardiomyopathy, unspecified; G47.33 Obstructive sleep apnea (adult) (pediatric); Z99.89 Dependence on other enabling machines and devices; I95.9 Hypotension, unspecified; I71.9 Aortic aneurysm of unspecified site, without rupture; Z79.01 Long term (current) use of anticoagulants; Z79.899 Other long term (current) drug therapy; Z79.82 Long term (current) use of aspirin; E66.9 Obesity, unspecified; Z68.26 Body mass index [BMI] 26.0-26.9, adult; Z82.49 Family history of ischemic heart disease and other diseases of the circulatory system; Z80.0 Family history of malignant neoplasm of digestive organs
CPT/HCPCS: 99291; 96360 ×2; 96361 ×4; 36415; 93005; 93306; 93454; 92960; 80061; 80053; 82550; 82553; 83735; 84484; 85025; 85610; 85730 ×2; 71046; G0378 ×2; C1894; J2001; J2250; J1644 ×2; J2704; Q9967

== ENCOUNTER 2018-02-20 04:22 | Observation (INO) | payer MEDICAID ==
[2018-02-20] MEDS ORDERED: SODIUM CHLORIDE 0.9% 500 ML IV STA (04:35)
--- NOTE | 2018-02-20 04:39 | ED ---
General Adult HPI - General Stated complaint: Chest Pain hx A-Fib Time Seen by Provider: 02/20/18 04:22 Source: RN notes reviewed - History of Present Illness Initial comments: This is a 52-year-old male who presents emergency department with past medical history significant for atrial flutter as well as atrial fib. Patient states he woke up this morning with the same sensations had in the past he states his heart rate was about 130. Coumadin. Patient states in the past abuse Cardizem to convert him but he dropped his blood pressure and had to be put in the ICU. Patient states normally the cardiovert him to successfully convert him. Patient states he just had a catheterization recently and was clear. Patient denies any chest pain difficult breathing shortness of breath. Patient denies any recent fever chills or cough. - Related Data Home Medications Medication Instructions Recorded Confirmed Pravastatin Sodium [Pravachol] 20 mg PO QAM 02/05/18 02/05/18 Previous Rx's Medication Instructions Recorded Apixaban [Eliquis] 5 mg PO BID #60 tab 09/20/17 Flecainide [Tambocor] 100 mg PO Q12HR #30 tablet 09/24/17 Allergies Allergy/AdvReac Type Severity Reaction Status Date / Time No Known Allergies Allergy Verified 02/05/18 10:27 Review of Systems ROS Statement: Those systems with pertinent positive or pertinent negative responses have been documented in the HPI. ROS Other: All systems not noted in ROS Statement are negative. Past Medical History Past Medical History: Atrial Fibrillation, Atrial Flutter, Hyperlipidemia, Sleep Apnea/CPAP/BIPAP Additional Past Medical History / Comment(s): CARMELLA without device, aortic aneurysm. History of Any Multi-Drug Resistant Organisms: None Reported Past Surgical History: Cardiac Ablation, Tonsillectomy Additional Past Surgical History / Comment(s): A fib ablation 12/03/17, A flutter ablation 09/24/17 Past Anesthesia/Blood Transfusion Reactions: No Reported Reaction Smoking Status: Never smoker - Past Family History Father Family Medical History: Cancer, Myocardial Infarction ([place]) Additional Family Medical History / Comment(s): Father had a MD at the age of 43yrs and of a MD at the age of 53yrs. Mother Family Medical History: Cancer Additional Family Medical History / Comment(s): Mother from a rare type cancer in her small bowel. General Exam - General Exam Comments Initial Comments: GENERAL: Patient is well-developed and well-nourished. Patient is nontoxic and well- hydrated and is in mild distress. ENT: Neck is soft and supple. No significant lymphadenopathy is noted. Oropharynx is clear. Moist mucous membranes. EYES: The sclera were anicteric and conjunctiva were pink and moist. Extraocular movements were intact and pupils were equal round and reactive to light. Eyelids were unremarkable. PULMONARY: Unlabored respirations. Good breath sounds bilaterally. No audible rales rhonchi or wheezing was noted. CARDIOVASCULAR: Patient is tachycardic at 110 beats a minute ABDOMEN: Soft and nontender with normal bowel sounds. No palpable organomegaly was noted. There is no palpable pulsatile mass. SKIN: Skin is clear with no lesions or rashes and otherwise unremarkable. NEUROLOGIC: Patient is alert and oriented x3. Cranial nerves II through XII are grossly intact. Motor and sensory are also intact. Normal speech, volume and content. Symmetrical smile. MUSCULOSKELETAL: Normal extremities with adequate strength and full range of motion. No lower extremity swelling or edema. No calf tenderness. LYMPHATICS: No significant lymphadenopathy is noted PSYCHIATRIC: Normal psychiatric evaluation. Normal interpersonal interactions appears functionally intact in deals appropriately with others. No signs of depression. No signs of anxiety. Course Vital Signs 02/20/18 02/20/18 05:11 05:53 Temperature 97.5 F L 97.8 F Pulse Rate 112 H 116 H Respiratory 16 16 Rate Blood Pressure 137/99 137/99 O2 Sat by Pulse 96 95 Oximetry Medical Decision Making - Medical Decision Making EKG shows atrial flutter at a rate of 111 bpm AR interval is 186 QRS is 98 QT interval 350 QTC is 476. Chest x-ray shows no acute abnormality. Patient's heart rate remained between 110 and 120. I went back to reevaluate the patient he stated he could still feels heart racing. Patient did not want any medications because in the past they've really dropped his blood pressure. I spoke with [facility] hospitalist and they agreed to accept the patient admitted the patient wrote admit orders consult cardiology. - Lab Data Result diagrams: 02/20/18 04:30 02/20/18 04:30 Lab Results 02/20/18 02/20/18 02/20/18 Range/Units 04:30 04:30 04:30 WBC 6.1 (3.8-10.6) k/uL RBC 5.24 (4.30-5.90) m/uL Hgb 16.2 (13.0-17.5) gm/dL Hct 46.5 (39.0-53.0) % MCV 88.7 (80.0-100.0) fL MCH 30.9 (25.0-35.0) pg MCHC 34.9 (31.0-37.0) g/dL RDW 12.2 (11.5-15.5) % Plt Count 234 (150-450) k/uL Neutrophils % 56 % Lymphocytes % 27 % Monocytes % 10 % Eosinophils % 2 % Basophils % 1 % Neutrophils # 3.4 (1.3-7.7) k/uL Lymphocytes # 1.7 (1.0-4.8) k/uL Monocytes # 0.6 (0-1.0) k/uL Eosinophils # 0.1 (0-0.7) k/uL Basophils # 0.1 (0-0.2) k/uL PT (9.0-12.0) sec INR (<1.2) APTT (22.0-30.0) sec Sodium 142 (137-145) mmol/L Potassium 4.2 (3.5-5.1) mmol/L Chloride 102 (98-107) mmol/L Carbon Dioxide 25 (22-30) mmol/L Anion Gap 15 mmol/L BUN 22 H (9-20) mg/dL Creatinine 1.00 (0.66-1.25) mg/dL Est GFR (CKD-EPI)AfAm >90 (>60 ml/min/1.73 sqM) Est GFR (CKD-EPI)NonAf 86 (>60 ml/min/1.73 sqM) Glucose 95 (74-99) mg/dL Calcium 10.6 H (8.4-10.2) mg/dL Magnesium 2.2 (1.6-2.3) mg/dL Total Bilirubin 0.3 (0.2-1.3) mg/dL AST 24 (17-59) U/L ALT 29 (21-72) U/L Alkaline Phosphatase 58 (38-126) U/L Total Creatine Kinase 59 (55-170) U/L CK-MB (CK-2) 0.4 (0.0-2.4) ng/mL CK-MB (CK-2) Rel Index 0.7 Troponin I <0.012 (0.000-0.034) ng/mL Total Protein 7.3 (6.3-8.2) g/dL Albumin 4.5 (3.5-5.0) g/dL TSH 1.650 (0.465-4.680) mIU/L Free T4 1.00 (0.78-2.19) ng/dL 02/20/18 Range/Units 04:30 WBC (3.8-10.6) k/uL RBC (4.30-5.90) m/uL Hgb (13.0-17.5) gm/dL Hct (39.0-53.0) % MCV (80.0-100.0) fL MCH (25.0-35.0) pg MCHC (31.0-37.0) g/dL RDW (11.5-15.5) % Plt Count (150-450) k/uL Neutrophils % % Lymphocytes % % Monocytes % % Eosinophils % % Basophils % % Neutrophils # (1.3-7.7) k/uL Lymphocytes # (1.0-4.8) k/uL Monocytes # (0-1.0) k/uL Eosinophils # (0-0.7) k/uL Basophils # (0-0.2) k/uL PT 9.7 (9.0-12.0) sec INR 1.0 (<1.2) APTT 23.8 (22.0-30.0) sec Sodium (137-145) mmol/L Potassium (3.5-5.1) mmol/L Chloride (98-107) mmol/L Carbon Dioxide (22-30) mmol/L Anion Gap mmol/L BUN (9-20) mg/dL Creatinine (0.66-1.25) mg/dL Est GFR (CKD-EPI)AfAm (>60 ml/min/1.73 sqM) Est GFR (CKD-EPI)NonAf (>60 ml/min/1.73 sqM) Glucose (74-99) mg/dL Calcium (8.4-10.2) mg/dL Magnesium (1.6-2.3) mg/dL Total Bilirubin (0.2-1.3) mg/dL AST (17-59) U/L ALT (21-72) U/L Alkaline Phosphatase (38-126) U/L Total Creatine Kinase (55-170) U/L CK-MB (CK-2) (0.0-2.4) ng/mL CK-MB (CK-2) Rel Index Troponin I (0.000-0.034) ng/mL Total Protein (6.3-8.2) g/dL Albumin (3.5-5.0) g/dL TSH (0.465-4.680) mIU/L Free T4 (0.78-2.19) ng/dL Disposition Clinical Impression: Atrial flutter with rapid ventricular response Disposition: ADMITTED IP TO THIS HOSP Referrals: Joi Aguilera MD [Primary Care Provider] - 1-2 days Time of Disposition: 05:56
[2018-02-20 05:03] LABS: Partial Thromboplastin Time 23.8 sec (22.0-30.0); Prothrombin Time 9.7 sec (9.0-12.0)
[2018-02-20 05:05] LABS: ALT 29 U/L (21-72); AST 24 U/L (17-59); Albumin 4.5 g/dL (3.5-5.0); Alkaline Phosphatase 58 U/L (38-126); Anion Gap 15 mmol/L; Blood Urea Nitrogen 22 mg/dL (9-20); Calcium 10.6 mg/dL (8.4-10.2); Carbon Dioxide 25 mmol/L (22-30); Chloride 102 mmol/L (98-107); Glucose 95 mg/dL (74-99); Magnesium 2.2 mg/dL (1.6-2.3); Potassium 4.2 mmol/L (3.5-5.1); Sodium 142 mmol/L (137-145); Total Bilirubin 0.3 mg/dL (0.2-1.3); Total Protein 7.3 g/dL (6.3-8.2)
[2018-02-20 05:07] LABS: Basophils # (A) 0.1 k/uL (0-0.2); Basophils % (A) 1 %; Eosinophils # (A) 0.1 k/uL (0-0.7); Eosinophils % (A) 2 %; HCT 46.5 % (39.0-53.0); HGB 16.2 gm/dL (13.0-17.5); Lymphocytes # (A) 1.7 k/uL (1.0-4.8); Lymphocytes % (A) 27 %; MCH 30.9 pg (25.0-35.0); MCHC 34.9 g/dL (31.0-37.0); MCV 88.7 fL (80.0-100.0); Mean Platelet Volume 7.3; Monocytes # (A) 0.6 k/uL (0-1.0); Monocytes % (A) 10 %; Neutrophils # (A) 3.4 k/uL (1.3-7.7); Neutrophils % (A) 56 %; Platelet Count 234 k/uL (150-450); RBC 5.24 m/uL (4.30-5.90); RDW 12.2 % (11.5-15.5); WBC 6.1 k/uL (3.8-10.6)
[2018-02-20 05:15] LABS: Creatine Kinase 59 U/L (55-170)
--- NOTE | 2018-02-20 05:25 | XR ---
EXAMINATION TYPE: XR chest 2V DATE OF EXAM: 02/20/2018 COMPARISON: 02/05/2018 HISTORY: Irregular heart rate TECHNIQUE: Frontal and lateral views of the chest are obtained. FINDINGS: Heart and mediastinum are normal. Lungs are clear. Diaphragm is normal. There are chest le ads. Bony thorax appears normal. IMPRESSION: Normal chest. No change.
[2018-02-20 05:28] LABS: Creatine Kinase MB 0.4 ng/mL (0.0-2.4); Troponin I <0.012 ng/mL (0.000-0.034)
[2018-02-20] MEDS ORDERED: NITROGLYCERIN SL TABS 0.4 MG TAB SUBLINGUAL PRN (05:56)
[2018-02-20 08:04] VITALS: BP 119/67; PULSE 89; RESP 18; TEMP 98
--- NOTE | 2018-02-20 10:31 | P.CRDCN ---
History of Present Illness Consult date: 02/20/18 History of present illness: This is a 52-year-old gentleman with history of atrial flutter with ablation done in the past who woke up in the morning with complaints of palpitations. Patient took extra flatlined at home and came to the emergency room. Patient converted to sinus rhythm this morning and feeling better. Recently patient was in the hospital with palpitation and chest pain. Patient had a cardiac catheterization and was found have normal coronary arteries. Patient is feeling good and wants to go home. He is advised to take flecainide 150 mg twice daily. Follow-up with Dr. Abernathy as an outpatient as soon as possible. Review of Systems REVIEW OF SYSTEMS: CONSTITUTIONAL:. Patient is doing well. No complaints of fever or chills EYES: Denies diplopia, blurring of vision EARS, NOSE, MOUTH, THROAT: Denies headaches, denies sore throat. CARDIOVASCULAR: As per HPI RESPIRATORY: Denies shortness of breath, denies cough. GASTROINTESTINAL: Denies change in appetite, denies abdominal pain, denies diarrhea GENITOURINARY: Denies hematuria, denies infections. MUSKULOSKELETAL: Denies pain, denies swelling. Denies any cramps or claudication INTEGUMENTARY: Denies rash, denies eczema. NEUROLOGICAL: Denies focal weakness, or visual disturbance. Denies any dizziness or syncope PSYCHIATRIC: Denies anxiety, denies depression. HEMATOLOGIC/LYMPHATIC: Denies any bleeding, denies enlarged lymph nodes. Past Medical History Past Medical History: Atrial Fibrillation, Atrial Flutter, Hyperlipidemia, Sleep Apnea/CPAP/BIPAP Additional Past Medical History / Comment(s): CARMELLA without device, aortic aneurysm. History of Any Multi-Drug Resistant Organisms: None Reported Past Surgical History: Cardiac Ablation, Tonsillectomy Additional Past Surgical History / Comment(s): A fib ablation 12/03/17, A flutter ablation 09/24/17 Past Anesthesia/Blood Transfusion Reactions: No Reported Reaction Past Psychological History: No Psychological Hx Reported Additional Psychological History / Comment(s): Pt resides with his spouse and 3 of their 4 children, one child is off at college. Pt is independent. Smoking Status: Never smoker Past Alcohol Use History: None Reported Past Drug Use History: None Reported - Past Family History Father Family Medical History: Cancer, Myocardial Infarction ([place]) Additional Family Medical History / Comment(s): Father had a GA at the age of 43yrs and of a GA at the age of 53yrs. Mother Family Medical History: Cancer Additional Family Medical History / Comment(s): Mother from a rare type cancer in her small bowel. Medications and Allergies Home Medications Medication Instructions Recorded Confirmed Type Apixaban [Eliquis] 5 mg PO BID #60 tab 09/20/17 02/05/18 Rx Flecainide [Tambocor] 100 mg PO Q12HR #30 tablet 09/24/17 02/05/18 Rx Pravastatin Sodium [Pravachol] 20 mg PO QAM 02/05/18 02/05/18 History Allergies Allergy/AdvReac Type Severity Reaction Status Date / Time No Known Allergies Allergy Verified 02/05/18 10:27 Physical Exam Vitals: Vital Signs Temp Pulse Pulse Resp BP BP Pulse Ox 02/20/18 06:45 98 F 89 18 119/67 97 02/20/18 06:24 97.8 F 114 H 16 137/99 95 02/20/18 05:53 97.8 F 116 H 16 137/99 95 02/20/18 05:11 97.5 F L 112 H 16 137/99 96 Intake and Output 02/19/18 02/20/18 02/20/18 22:59 06:59 14:59 Intake Total 240 Balance 240 Intake: Oral 240 Other: # Voids 2 Weight 83.915 kg GENERAL EXAM: Patient is alert and oriented and doesn't appear to be in any acute distress HEENT: Normocephalic. Normal reaction of pupils, equal size, normal range of extraocular motion. No erythema or exudates in the throat. NECK: No masses, no nuchal rigidity. CHEST: No chest wall deformity. LUNGS: [Equal air entry with no crackles or wheeze.] HEART: [S1 and S2 normal with no audible mumurs or gallops. Regular rhythm, femorals equal on both sides..] ABDOMEN: No hepatosplenomegaly, normal bowel sounds, no guarding or rigidity. SKIN: No rashes CENTRAL NERVOUS SYSTEM: No focal deficits. EXTREMITIES: [No cyanosis, clubbing or edema.] Results 02/20/18 04:30 02/20/18 04:30 Cardiac Enzymes 02/20/18 02/20/18 Range/Units 04:30 04:30 AST 24 (17-59) U/L CK-MB (CK-2) 0.4 (0.0-2.4) ng/mL Troponin I <0.012 (0.000-0.034) ng/mL Coagulation 02/20/18 Range/Units 04:30 PT 9.7 (9.0-12.0) sec APTT 23.8 (22.0-30.0) sec CBC 02/20/18 Range/Units 04:30 WBC 6.1 (3.8-10.6) k/uL RBC 5.24 (4.30-5.90) m/uL Hgb 16.2 (13.0-17.5) gm/dL Hct 46.5 (39.0-53.0) % Plt Count 234 (150-450) k/uL Comprehensive Metabolic Panel 02/20/18 Range/Units 04:30 Sodium 142 (137-145) mmol/L Potassium 4.2 (3.5-5.1) mmol/L Chloride 102 (98-107) mmol/L Carbon Dioxide 25 (22-30) mmol/L BUN 22 H (9-20) mg/dL Creatinine 1.00 (0.66-1.25) mg/dL Glucose 95 (74-99) mg/dL Calcium 10.6 H (8.4-10.2) mg/dL AST 24 (17-59) U/L ALT 29 (21-72) U/L Alkaline Phosphatase 58 (38-126) U/L Total Protein 7.3 (6.3-8.2) g/dL Albumin 4.5 (3.5-5.0) g/dL Current Medications Generic Name Dose Route Start Last Admin Trade Name Freq PRN Reason Stop Dose Admin Aspirin 325 mg 02/21/18 09:00 Aspirin PO DAILY FRANSICO Nitroglycerin 0.4 mg 02/20/18 05:56 Nitrostat SUBLINGUAL Q5M PRN Chest Pain Intake and Output 02/19/18 02/20/18 02/20/18 22:59 06:59 14:59 Intake Total 240 Balance 240 Intake: Oral 240 Other: # Voids 2 Weight 83.915 kg 02/20/18 04:30 02/20/18 04:30 EKG Interpretations (text) Initial EKG showed atrial flutter. Subsequent EKG showed normal sinus rhythm Assessment and Plan (1) Atrial flutter with rapid ventricular response Current Visit: Yes Status: Acute Code(s): I48.92 - UNSPECIFIED ATRIAL FLUTTER SNOMED Code(s): 3237018 Plan: Patient is back in sinus rhythm and clinically feeling well. Patient could be discharged home. He is advised to take flecainide 150 mg by mouth twice a day. Follow-up with Dr. Barrios as an outpatient.
--- NOTE | 2018-02-20 11:44 | P.HPIM ---
History of Present Illness H&P Date: 02/20/18 Chief Complaint: Palpitations Mr. Neves is a 52 year old male with the past medical history of atrial fibrillation/atrial flutter, hyperlipidemia, obstructive sleep apnea on CPAP coming in with a chief complaint of palpitations. Patient states that he was in his usual state of health until last night and went to bed with his CPAP and in the middle of the night he woke up with the palpitations. Patient mentions that he has history of atrial fibrillation and has undergone ablation in December by Dr. Pineda. He mentions that usually hit the palpitations go away after a while but on this occasion they persisted for longer than expected and so he came into the emergency department for further evaluation. Patient denies having any chest pain, dizziness, headaches. He denies having any complaints of swelling of his lower extremities. No focal weakness. He denies having any cough fever chills or rigors. When he came into the ED he was in A. fib and this morning it converted into sinus rhythm by itself. Currently the patient is sitting up in his bed and states that he wants to go home and he denies having any active complaints. Cardiology Dr. Miranda has seen the patient and advised that his Felcainide I dose being increased to 150 mg BID instead of 100 mg twice daily that he is taking currently on. Review of Systems REVIEW OF SYSTEMS: PSYCH: Normal psychiatric exam NEURO:No c/o weakness of the extremties, No facial droop, No speech abnormalities. VASCULAR: Peripheral nervous system within the normal limits no edema. HEMATOLOGIC: No history of easy bleeding and bruising . No recent infections . RESPIRATORY: No cough, No SOB, No chest discomfort. IMMUNE: No infections INTEGUMENT: no rashes OPHTHALMOLOGIC: No blurry vision and no eye discharge : No dysuria or hematuria CARDIAC: No chest pain , shortness of breath , paroxysmal nocturnal dyspnea MUSCULOSKELETAL : No Aches or pains in the joints or muscles. GI: No abdominal pain, Nausea or vomiting. No constipation or diarrhea. Past Medical History Past Medical History: Atrial Fibrillation, Atrial Flutter, Hyperlipidemia, Sleep Apnea/CPAP/BIPAP Additional Past Medical History / Comment(s): CARMELLA without device, aortic aneurysm. History of Any Multi-Drug Resistant Organisms: None Reported Past Surgical History: Cardiac Ablation, Tonsillectomy Additional Past Surgical History / Comment(s): A fib ablation 12/03/17, A flutter ablation 09/24/17 Past Anesthesia/Blood Transfusion Reactions: No Reported Reaction Past Psychological History: No Psychological Hx Reported Additional Psychological History / Comment(s): Pt resides with his spouse and 3 of their 4 children, one child is off at college. Pt is independent. Smoking Status: Never smoker Past Alcohol Use History: None Reported Past Drug Use History: None Reported - Past Family History Father Family Medical History: Cancer, Myocardial Infarction ([place]) Additional Family Medical History / Comment(s): Father had a [place] at the age of 43yrs and of a [place] at the age of 53yrs. Mother Family Medical History: Cancer Additional Family Medical History / Comment(s): Mother from a rare type cancer in her small bowel. Medications and Allergies Home Medications Medication Instructions Recorded Confirmed Type Apixaban [Eliquis] 5 mg PO BID #60 tab 09/20/17 02/20/18 Rx Flecainide [Tambocor] 100 mg PO Q12HR #30 tablet 09/24/17 02/20/18 Rx Pravastatin Sodium [Pravachol] 20 mg PO QAM 02/05/18 02/20/18 History Allergies Allergy/AdvReac Type Severity Reaction Status Date / Time No Known Allergies Allergy Verified 02/20/18 11:15 Physical Exam Vitals: Vital Signs Temp Pulse Pulse Resp BP BP Pulse Ox 02/20/18 06:45 98 F 89 18 119/67 97 02/20/18 06:24 97.8 F 114 H 16 137/99 95 02/20/18 05:53 97.8 F 116 H 16 137/99 95 02/20/18 05:11 97.5 F L 112 H 16 137/99 96 Intake and Output 02/19/18 02/20/18 02/20/18 22:59 06:59 14:59 Intake Total 240 Balance 240 Intake: Oral 240 Other: # Voids 2 Weight 83.915 kg GENERAL EXAM GEN. APPEARANCE: alert, in no apparent distress HEAD EXAM: atraumatic, normocephalic, normal inspection EYE EXAM: normal appearance, PERRL, EOMI. Absent: scleral icterus, conjunctival injection, periorbital swelling ENT EXAM: normal exam, mucous membranes moist RESPIRATORY EXAM: normal lung sounds bilaterally. Absent: respiratory distress , wheezes, rales, rhonchi, stridor CARDIOVASCULAR EXAM: regular rate, normal rhythm, normal heart sounds. Absent : systolic murmur, diastolic murmur, rubs, gallop, clicks GI/ABDOMINAL EXAM: soft, normal bowel sounds. Absent: distended, tenderness, guarding, rebound, rigid EXTREMITIES EXAM: normal inspection, full ROM, normal capillary refill. Absent : tenderness, pedal edema, joint swelling, calf tenderness NEUROLOGICAL EXAM: alert, oriented X3, CN II-XII intact, motor sensory deficit PSYCHIATRIC EXAM: normal affect, normal mood SKIN EXAM: warm, dry, intact, normal color. Absent: rash Results CBC & Chem 7: 02/20/18 04:30 02/20/18 04:30 Labs: Abnormal Lab Results - Last 24 Hours (Table) 02/20/18 Range/Units 04:30 BUN 22 H (9-20) mg/dL Calcium 10.6 H (8.4-10.2) mg/dL Thrombosis Risk Factor Assmnt - Choose All That Apply Any of the Below Risk Factors Present?: No Other Risk Factors: No Other congenital or acquired thrombophilia - If yes, enter type in comment: No Thrombosis Risk Factor Assessment Level: Very Low Risk Assessment and Plan Assessment: ASSESSMENT Atrial fibrillation with rapid ventricular rate Hyperlipidemia Obstructive sleep apnea on CPAP PLAN Patient converted into sinus rhythm without any intervention. Cardiology Dr. Miranda has seen the patient and recommended that the dose of Felcainide being increased to 150 mg twice a day the patient is being discharged home on it . He is advised to follow-up with his customer solutions supervisor DR. Barrios in 1-2 weeks.
--- NOTE | 2018-02-20 11:56 | P.DS ---
Providers Date of admission: 02/20/18 05:56 Attending physician: Keegan Tejada Consults: 02/20/18 05:57 Consult Physician Urgent Consulting Provider: [facility] Consult Reason/Comments: Atrial flutter with rapid ventricular response Do you want consulting provider notified?: Yes [facility] Course: Mr. Neves is a 52 year old male with the past medical history of atrial fibrillation/atrial flutter, hyperlipidemia, obstructive sleep apnea on CPAP coming in with a chief complaint of palpitations. Patient states that he was in his usual state of health until last night and went to bed with his CPAP and in the middle of the night he woke up with the palpitations. Patient mentions that he has history of atrial fibrillation and has undergone ablation in December by Dr. Pineda. He mentions that usually hit the palpitations go away after a while but on this occasion they persisted for longer than expected and so he came into the emergency department for further evaluation. Patient denies having any chest pain, dizziness, headaches. He denies having any complaints of swelling of his lower extremities. No focal weakness. He denies having any cough fever chills or rigors. When he came into the ED he was in A. fib and this morning it converted into sinus rhythm by itself. Currently the patient is sitting up in his bed and states that he wants to go home and he denies having any active complaints. Cardiology Dr. Miranda has seen the patient and advised that his Felcainide I dose being increased to 150 mg BID instead of 100 mg twice daily that he is taking currently on. DISCHARGE DIAGNOSIS Atrial fibrillation with rapid ventricular rate Hyperlipidemia Obstructive sleep apnea on CPAP Patient converted into sinus rhythm without any intervention. Cardiology Dr. Miranda has seen the patient and recommended that the dose of Felcainide being increased to 150 mg twice a day the patient is being discharged home on it . He is advised to follow-up with his lease purchase driver DR. Barrios in 1-2 weeks. Plan - Discharge Summary Discharge Rx Participant: Yes New Discharge Prescriptions: New Flecainide [Tambocor] 50 mg PO Q12HR 30 Days #60 tablet Continue Apixaban [Eliquis] 5 mg PO BID #60 tab Flecainide [Tambocor] 100 mg PO Q12HR #30 tablet Pravastatin Sodium [Pravachol] 20 mg PO QAM Discharge Medication List Apixaban [Eliquis] 5 mg PO BID #60 tab 09/20/17 [Rx] Flecainide [Tambocor] 100 mg PO Q12HR #30 tablet 09/24/17 [Rx] Pravastatin Sodium [Pravachol] 20 mg PO QAM 02/05/18 [History] Flecainide [Tambocor] 50 mg PO Q12HR 30 Days #60 tablet 02/20/18 [Rx] Follow up Appointment(s)/Referral(s): Joi Aguilera MD [Primary Care Provider] - 1-2 days Discharge Disposition: HOME SELF-CARE
[2018-02-21] MEDS ORDERED: ASPIRIN 325 MG TAB PO SCH (09:00)
== END 2018-02-20 12:17 | disposition home or self-care (01) ==
LOC: EC 04:22 → 6SEL 05:56
PROVIDERS: ADMIT Hospitalist; ATTEND Hospitalist
DX: I48.91 Unspecified atrial fibrillation (principal); I48.92 Unspecified atrial flutter; E78.5 Hyperlipidemia, unspecified; G47.33 Obstructive sleep apnea (adult) (pediatric); Z99.89 Dependence on other enabling machines and devices; R07.9 Chest pain, unspecified; I71.9 Aortic aneurysm of unspecified site, without rupture; Z79.899 Other long term (current) drug therapy; Z79.01 Long term (current) use of anticoagulants; Z80.0 Family history of malignant neoplasm of digestive organs
CPT/HCPCS: 99285 ×2; 36415; 93005; 84439; 80053; 82550; 82553; 83735; 84443; 84484; 85025; 85610; 85730; 71046; G0378

== ENCOUNTER 2018-03-11 09:54 | Emergency (ER) | payer MEDICAID ==
[2018-03-11 10:01] VITALS: TEMP 98
--- NOTE | 2018-03-11 10:24 | ED ---
General Adult HPI - General Chief complaint: Chest Pain Stated complaint: A fib Time Seen by Provider: 03/11/18 10:00 Source: patient, RN notes reviewed Mode of arrival: wheelchair Limitations: no limitations - History of Present Illness Initial comments: This is a 52-year-old male who presents emergency Department with a past medical history of atrial fibrillation patient said 2 ablations for but neither of work. Patient is on flecainide and it was recently increased but that does not appear to be working. Patient states she woke up at about two thirds morning with his heart racing he states he got his thighs 1:30 but has been right around 100 210 for most the time. Patient denies any chest pain or shortness of breath. Patient denies any lightheadedness or dizziness. Patient denies any recent fever chills or cough. Patient denies abdominal pain patient denies nausea vomiting diarrhea. - Related Data Home Medications Medication Instructions Recorded Confirmed Pravastatin Sodium [Pravachol] 20 mg PO QAM 02/05/18 03/11/18 Previous Rx's Medication Instructions Recorded Apixaban [Eliquis] 5 mg PO BID #60 tab 09/20/17 Flecainide [Tambocor] 100 mg PO Q12HR #30 tablet 09/24/17 Flecainide [Tambocor] 50 mg PO Q12HR 30 Days #60 tablet 02/20/18 Allergies Allergy/AdvReac Type Severity Reaction Status Date / Time No Known Allergies Allergy Verified 03/11/18 10:23 Review of Systems ROS Statement: Those systems with pertinent positive or pertinent negative responses have been documented in the HPI. ROS Other: All systems not noted in ROS Statement are negative. Past Medical History Past Medical History: Atrial Fibrillation, Atrial Flutter, Hyperlipidemia, Sleep Apnea/CPAP/BIPAP Additional Past Medical History / Comment(s): CARMELLA without device, aortic aneurysm. History of Any Multi-Drug Resistant Organisms: None Reported Past Surgical History: Cardiac Ablation, Tonsillectomy Additional Past Surgical History / Comment(s): A fib ablation 12/03/17, A flutter ablation 09/24/17 Past Anesthesia/Blood Transfusion Reactions: No Reported Reaction Past Psychological History: No Psychological Hx Reported Smoking Status: Never smoker Past Alcohol Use History: None Reported Past Drug Use History: None Reported - Past Family History Father Family Medical History: Cancer, Myocardial Infarction (LA) Additional Family Medical History / Comment(s): Father had a LA at the age of 43yrs and of a LA at the age of 53yrs. Mother Family Medical History: Cancer Additional Family Medical History / Comment(s): Mother from a rare type cancer in her small bowel. General Exam - General Exam Comments Initial Comments: GENERAL: Patient is well-developed and well-nourished. Patient is nontoxic and well- hydrated and is in mild distress. ENT: Neck is soft and supple. No significant lymphadenopathy is noted. Oropharynx is clear. Moist mucous membranes. Neck has full range of motion without eliciting any pain. EYES: The sclera were anicteric and conjunctiva were pink and moist. Extraocular movements were intact and pupils were equal round and reactive to light. Eyelids were unremarkable. PULMONARY: Unlabored respirations. Good breath sounds bilaterally. No audible rales rhonchi or wheezing was noted. CARDIOVASCULAR: There is a regular rate and rhythm without any murmurs gallops or rubs. ABDOMEN: Soft and nontender with normal bowel sounds. SKIN: Skin is clear with no lesions or rashes and otherwise unremarkable. NEUROLOGIC: Patient is alert and oriented x3. Cranial nerves II through XII are grossly intact. Motor and sensory are also intact. Normal speech, volume and content. Symmetrical smile. MUSCULOSKELETAL: Normal extremities with adequate strength and full range of motion. No lower extremity swelling or edema. No calf tenderness. LYMPHATICS: No significant lymphadenopathy is noted PSYCHIATRIC: Normal psychiatric evaluation. Normal interpersonal interactions appears functionally intact in deals appropriately with others. No signs of depression. No signs of anxiety. Limitations: no limitations Course Vital Signs 03/11/18 03/11/18 03/11/18 09:59 10:17 11:59 Temperature 98 F Pulse Rate 56 L 106 H 135 H Respiratory 16 16 16 Rate Blood Pressure 102/69 101/73 127/80 O2 Sat by Pulse 97 99 97 Oximetry 03/11/18 12:06 Temperature Pulse Rate 78 Respiratory 16 Rate Blood Pressure 108/71 O2 Sat by Pulse 97 Oximetry Medical Decision Making - Medical Decision Making EKG shows atrial fibrillation with rapid ventricular response at 110 bpm QRS is 116 QT interval 402 QTC is [address] segment elevation or depression is noted I spoke with Dr. Barrios soon as the patient arrived and he wanted the patient to be cardioverted so he came to the emergency room to cardiovert the patient Patient was stable and after sedation wore off patient was discharged home on - Lab Data Result diagrams: 03/11/18 10:13 03/11/18 10:13 Lab Results 03/11/18 03/11/18 03/11/18 Range/Units 10:13 10:13 10:13 WBC 5.3 (3.8-10.6) k/uL RBC 5.46 (4.30-5.90) m/uL Hgb 17.0 (13.0-17.5) gm/dL Hct 48.5 (39.0-53.0) % MCV 88.7 (80.0-100.0) fL MCH 31.2 (25.0-35.0) pg MCHC 35.1 (31.0-37.0) g/dL RDW 12.4 (11.5-15.5) % Plt Count 223 (150-450) k/uL Neutrophils % 59 % Lymphocytes % 29 % Monocytes % 7 % Eosinophils % 1 % Basophils % 1 % Neutrophils # 3.1 (1.3-7.7) k/uL Lymphocytes # 1.5 (1.0-4.8) k/uL Monocytes # 0.4 (0-1.0) k/uL Eosinophils # 0.1 (0-0.7) k/uL Basophils # 0.1 (0-0.2) k/uL PT (9.0-12.0) sec INR (<1.2) APTT (22.0-30.0) sec Sodium 144 (137-145) mmol/L Potassium 4.5 (3.5-5.1) mmol/L Chloride 106 (98-107) mmol/L Carbon Dioxide 25 (22-30) mmol/L Anion Gap 13 mmol/L BUN 17 (9-20) mg/dL Creatinine 0.90 (0.66-1.25) mg/dL Est GFR (CKD-EPI)AfAm >90 (>60 ml/min/1.73 sqM) Est GFR (CKD-EPI)NonAf >90 (>60 ml/min/1.73 sqM) Glucose 106 H (74-99) mg/dL Calcium 10.2 (8.4-10.2) mg/dL Magnesium 2.0 (1.6-2.3) mg/dL Total Bilirubin 0.4 (0.2-1.3) mg/dL AST 21 (17-59) U/L ALT 30 (21-72) U/L Alkaline Phosphatase 53 (38-126) U/L Total Creatine Kinase 76 (55-170) U/L CK-MB (CK-2) 0.3 (0.0-2.4) ng/mL CK-MB (CK-2) Rel Index 0.4 Troponin I <0.012 (0.000-0.034) ng/mL Total Protein 7.2 (6.3-8.2) g/dL Albumin 4.5 (3.5-5.0) g/dL 03/11/18 Range/Units 10:13 WBC (3.8-10.6) k/uL RBC (4.30-5.90) m/uL Hgb (13.0-17.5) gm/dL Hct (39.0-53.0) % MCV (80.0-100.0) fL MCH (25.0-35.0) pg MCHC (31.0-37.0) g/dL RDW (11.5-15.5) % Plt Count (150-450) k/uL Neutrophils % % Lymphocytes % % Monocytes % % Eosinophils % % Basophils % % Neutrophils # (1.3-7.7) k/uL Lymphocytes # (1.0-4.8) k/uL Monocytes # (0-1.0) k/uL Eosinophils # (0-0.7) k/uL Basophils # (0-0.2) k/uL PT 9.9 (9.0-12.0) sec INR 1.0 (<1.2) APTT 25.6 (22.0-30.0) sec Sodium (137-145) mmol/L Potassium (3.5-5.1) mmol/L Chloride (98-107) mmol/L Carbon Dioxide (22-30) mmol/L Anion Gap mmol/L BUN (9-20) mg/dL Creatinine (0.66-1.25) mg/dL Est GFR (CKD-EPI)AfAm (>60 ml/min/1.73 sqM) Est GFR (CKD-EPI)NonAf (>60 ml/min/1.73 sqM) Glucose (74-99) mg/dL Calcium (8.4-10.2) mg/dL Magnesium (1.6-2.3) mg/dL Total Bilirubin (0.2-1.3) mg/dL AST (17-59) U/L ALT (21-72) U/L Alkaline Phosphatase (38-126) U/L Total Creatine Kinase (55-170) U/L CK-MB (CK-2) (0.0-2.4) ng/mL CK-MB (CK-2) Rel Index Troponin I (0.000-0.034) ng/mL Total Protein (6.3-8.2) g/dL Albumin (3.5-5.0) g/dL Disposition Clinical Impression: Atrial fibrillation with RVR Disposition: HOME SELF-CARE Condition: Good Instructions: A-fib (Atrial Fibrillation) (ED) Is patient prescribed a controlled substance at d/c from ED?: No Referrals: Joi Aguilera MD [Primary Care Provider] - 1-2 days Time of Disposition: 12:25
[2018-03-11 10:35] LABS: Partial Thromboplastin Time 25.6 sec (22.0-30.0); Prothrombin Time 9.9 sec (9.0-12.0)
[2018-03-11 10:43] LABS: Basophils # (A) 0.1 k/uL (0-0.2); Basophils % (A) 1 %; Eosinophils # (A) 0.1 k/uL (0-0.7); Eosinophils % (A) 1 %; HCT 48.5 % (39.0-53.0); Lymphocytes # (A) 1.5 k/uL (1.0-4.8); Lymphocytes % (A) 29 %; MCH 31.2 pg (25.0-35.0); MCHC 35.1 g/dL (31.0-37.0); MCV 88.7 fL (80.0-100.0); Mean Platelet Volume 6.9; Monocytes # (A) 0.4 k/uL (0-1.0); Monocytes % (A) 7 %; Neutrophils # (A) 3.1 k/uL (1.3-7.7); Neutrophils % (A) 59 %; Platelet Count 223 k/uL (150-450); RBC 5.46 m/uL (4.30-5.90); RDW 12.4 % (11.5-15.5); WBC 5.3 k/uL (3.8-10.6)
[2018-03-11 10:45] LABS: ALT 30 U/L (21-72); AST 21 U/L (17-59); Albumin 4.5 g/dL (3.5-5.0); Alkaline Phosphatase 53 U/L (38-126); Anion Gap 13 mmol/L; Blood Urea Nitrogen 17 mg/dL (9-20); Calcium 10.2 mg/dL (8.4-10.2); Carbon Dioxide 25 mmol/L (22-30); Chloride 106 mmol/L (98-107); Glucose 106 mg/dL (74-99); Potassium 4.5 mmol/L (3.5-5.1); Sodium 144 mmol/L (137-145); Total Bilirubin 0.4 mg/dL (0.2-1.3); Total Protein 7.2 g/dL (6.3-8.2)
[2018-03-11 10:55] LABS: Creatine Kinase 76 U/L (55-170)
[2018-03-11 11:06] LABS: Creatine Kinase MB 0.3 ng/mL (0.0-2.4); Troponin I <0.012 ng/mL (0.000-0.034)
[2018-03-11] MEDS ORDERED: PROPOFOL 10 MG/ML 20 ML VIAL IV ONE (11:40)
--- NOTE | 2018-03-11 12:24 | P.PCN ---
Preoperative Diagnosis: Procedure Electrical cardioversion Indication for the procedure Symptomatic, paroxysmal atrial tachycardia atrial cycle length about 280 ms with RVR that was spontaneously initiated at around 2 AM in the morning. Patient is on flecainide 150 g twice daily as well as ELIQUIS. He was nothing by mouth since this morning Carotid sinus massage was performed and a 12-lead ECG was performed at that time. This showed negative atrial deflections in lead 1, upright deflections in the inferior leads, V1 showed an isoelectric interval followed by a delayed upright atrial deflection Cycle length of about 240-280 ms Procedure details Successful electrical cardioversion with 100 J biphasic shock under conscious sedation provided by anesthesia Patient converted to sinus rhythm. Post procedure ECG showed sinus rhythm normal MO narrow QRS Plan No driving for 24 hours Stop flecainide Start mild tach 400 mg twice daily Continue ELIQUIS I will schedule an atrial tachycardia ablation with CARTO upright deflections following a short isoelectric interval in lead V1 Anesthesia: MAC Condition: stable Disposition: same day
[2018-03-11 13:13] VITALS: BP 108/81; PULSE 69; RESP 16
== END 2018-03-11 13:12 | disposition home or self-care (01) ==
LOC: EC 09:54
DX: I48.91 Unspecified atrial fibrillation (principal); E78.5 Hyperlipidemia, unspecified; Z98.890 Other specified postprocedural states; Z79.899 Other long term (current) drug therapy
CPT/HCPCS: 99285; 92960 ×2; 36415; 93005; 80053; 82550; 82553; 83735; 84484; 85025; 85610; 85730; J2704

== ENCOUNTER → 2018-04-29 | Outpatient (CLI) | payer MEDICAID ==
[2018-04-29 11:15] LABS: HCT 45.1 % (39.0-53.0); HGB 15.3 gm/dL (13.0-17.5); MCH 30.1 pg (25.0-35.0); MCHC 33.9 g/dL (31.0-37.0); MCV 88.8 fL (80.0-100.0); Mean Platelet Volume 6.9; Platelet Count 231 k/uL (150-450); RBC 5.08 m/uL (4.30-5.90); WBC 5.3 k/uL (3.8-10.6)
[2018-04-29 11:28] LABS: Anion Gap 9 mmol/L; Blood Urea Nitrogen 18 mg/dL (9-20); Calcium 9.9 mg/dL (8.4-10.2); Carbon Dioxide 25 mmol/L (22-30); Chloride 103 mmol/L (98-107); Glucose 90 mg/dL (74-99); Potassium 4.6 mmol/L (3.5-5.1); Sodium 137 mmol/L (137-145)
== END | disposition home or self-care (01) ==
LOC: LABWHC1 10:40
PROVIDERS: ATTEND Internal Medicine Clinical Cardiac Electrophysiology
DX: I48.0 Paroxysmal atrial fibrillation (principal); I48.3 Typical atrial flutter
CPT/HCPCS: 36415; 80048; 85027

== ENCOUNTER 2018-05-06 11:13 | Day surgery (SDC) | payer MEDICAID ==
[2018-04-28 15:26] VITALS: BMI 26.5
[2018-05-06] MEDS ORDERED: SODIUM CHLORIDE 0.9% 1,000 ML IV ONE (11:54)
[2018-05-06] MEDS ORDERED: GLYCOPYRROLATE 0.2 MG/ML 2 ML VIAL ONE (13:04)
[2018-05-06] MEDS ORDERED: PHENYLEPHRINE-0.9% NACL SYG 1 MG/10 ML SYRINGE ONE (13:04)
[2018-05-06] MEDS ORDERED: SUCCINYLCHOLINE CHLORIDE 100 MG/5 ML SYR IV ONE (13:04)
[2018-05-06] MEDS ORDERED: NEOSTIGMINE 1 MG/ML 10 ML VIAL ONE (13:04)
[2018-05-06] MEDS ORDERED: fentaNYL (PF) 50 MCG/ML 2 ML AMP ONE (13:04)
[2018-05-06] MEDS ORDERED: diphenhydrAMINE 50 MG/ML 1 ML VIAL ONE (13:04)
[2018-05-06] MEDS ORDERED: PROPOFOL 10 MG/ML 20 ML VIAL IV ONE (13:04)
[2018-05-06] MEDS ORDERED: MIDAZOLAM 2 MG/2 ML VIAL ONE (13:04)
[2018-05-06] MEDS ORDERED: VECURONIUM 10 MG VIAL IV ONE (13:04)
[2018-05-06] MEDS ORDERED: KETAMINE 10 MG/ML 20 ML VIAL ONE (13:04)
[2018-05-06] MEDS ORDERED: ROCURONIUM BROMIDE 10 MG/ML 10 ML VIAL IV ONE (13:04)
[2018-05-06] MEDS ORDERED: LIDOCAINE 1% INJ 10MG/ML (20 ML MDV) SQ ONE (13:41)
[2018-05-06] MEDS ORDERED: HYDROcodone/APAP 5-325MG 1 EACH TAB PO PRN (16:16)
[2018-05-06] MEDS ORDERED: ACETAMINOPHEN TAB 325 MG TAB PO PRN (16:16)
[2018-05-06] MEDS ORDERED: HEPARIN SODIUM (1,000 UNIT/ML) 1,000 UNIT in SODIUM CHLORIDE 0.9% 1,000 ML IRRIGATION ONE (16:29)
[2018-05-06] MEDS ORDERED: SODIUM CHLORIDE 0.9% 500 ML IV ONE (16:29)
[2018-05-06] MEDS ORDERED: ACETAMINOPHEN IV (For NPO) 1,000 MG in EMPTY BAG 1 BAG IVPB ONE (17:00)
[2018-05-06] MEDS ORDERED: ACETAMINOPHEN IV (For NPO) 1,000 MG/100 ML VIAL IVPB ONE (17:05)
--- NOTE | 2018-05-06 17:19 | CE ---
CARDIAC ELECTROPHYSIOLOGY REPORT Rene Neves is a 52-year-old male patient who has paroxysmal atrial fibrillation as well as atrial flutter, status post atrial flutter ablation and pulmonary vein isolation/cryoablation. He was admitted on 2 occasions with atrial tachycardia. He was now brought in for an EP study and radiofrequency ablation of atrial tachycardia post atrial fibrillation. Patient was brought to the EP lab in a fasting state. Written informed consent was obtained prior to the procedure. The initial part of the procedure was performed under conscious sedation and the subsequent ablation was performed under general anesthesia since he has severe sleep apnea. Venous sheaths placed in the right and left femoral veins and via these diagnostic catheters were placed in the high right atrial area, His bundle area, RV coronary sinus. Later an intracardiac echo catheter and a long sheath with RF ablation catheter were placed. The patient was in sinus rhythm. At the start of the study he had stopped Multaq 3 days prior to the procedure. Sinus cycle length 884 milliseconds. NC interval 138 milliseconds, QRS 91 milliseconds, QT 399 milliseconds. The AH interval was 58 milliseconds, HV interval was 45 milliseconds. Sinus node recovery times of 600, 500 milliseconds were 943 and 1271 milliseconds. Corresponding corrected sinus recovery times within normal limits. AV node Wenckebach block at 350 milliseconds, VA Wenckebach block greater than 600 milliseconds. Burst stimulation from the coronary sinus and later burst stimulation from the high right atrium in a sedated state induced nonsustained runs of an atrial tachycardia with a cycle length of about 213 milliseconds with concentric activation in the coronary sinus and an activation pattern along the lateral wall of the coronary sinus that was consistent with right atrial flutter. Extra stimulation up to triple extrastimuli was performed. No arrhythmias were induced. Next high-dose Isuprel was used and this EP study was repeated but no arrhythmias induced on Isuprel. This is consistent with his history that he developed atrial tachycardia on both occasions and early as of the morning while sleeping and he has undergone a sleep study now and now just received his sleep apnea mask. Therefore decision made to map the right atrial isthmus. Intracardiac echo catheter was placed. A 3D mapping of the right atrial isthmus was performed. Voltage mapping of the right atrial isthmus was performed with the RF mapping ablation catheter along with a long sheath. There was near normal voltage along almost the entire segment of the right atrial isthmus that had been previously ablated. There was virtually complete recovery of voltage along most of the isthmus except close to the tricuspid anulus. RF ablation was then performed and at along the previous ablation site and then also a little lateral to it. The patient had 2 mid isthmus pouches. The major site of recovery was above an artery under the right atrial isthmus consistent with the research, which shows that arterial blood flow beneath an area of RF ablation acts as a heat sink. Nevertheless, successful ablation was performed. Contact force was used and power of about 30 epstein was used. At the end of the procedure intracardiac echo was once again performed. There was no fusion and the artery was intact and the arterial lumen was intact. Differential pacing showed that there was bidirectional block. There was also non capture along the RF line of block at high output pacing. At the end of the procedure once again burst stimulation was performed from the coronary sinus os and no atrial flutter was induced. All catheters were then removed. The patient tolerated the procedure well without any acute complications. RESULT: Atrial flutter as the mechanism of his tachycardia while on flecainide. It was quite likely that in addition to the recovery in the voltage in the right atrial isthmus, flecainide promoted development of atrial flutter. SUGGEST: Continue Eliquis for 6 weeks. Continue Multaq for 6 weeks and stop Multaq and Eliquis thereafter. Sleep apnea treatment with CPAP mask. LIBERTAD / GENEN: [id number] /
[2018-05-06] MEDS: SODIUM CHLORIDE 0.9% 1,000 ML IV SCH (17:52)
[2018-05-06] MEDS: LACTATED RINGERS 1,000 ML IV SCH (17:52)
[2018-05-06] MEDS: DRONEDARONE 400 MG TAB PO SCH (19:01)
[2018-05-06] MEDS: APIXABAN 5 MG TAB PO SCH (20:51)
--- NOTE | 2018-05-07 08:11 | P.DS ---
Providers Attending physician: Dontrell Barrios Primary care physician: [place] [facility] Course: Patient is doing well today. Yesterday after he came back from EP study he was nauseous sweaty and his blood pressure dropped. Stenosis recurrence. Following his EP study and atrial flutter ablation intracardiac echo revealed absence of any pericardial effusion, normal LV function Today he is walking around the hallways afebrile asymptomatic no chest pain no dizziness lightheadedness palpitations Respirations normal blood pressure 170 ms and 4 mmHg afebrile 97F pulse rate in the 80s Heart sounds are normal no murmurs or gallops Breath sounds are clear no rhonchi no crackles Groins have healed well is no hematoma no swelling Impression Paroxysmal atrial fibrillation status post pulmonary vein isolation few months back, no inducible atrial fibrillation at EP study Inducible atrial flutter at EP study status post successful flutter ablation Obstructive sleep apnea just started using the sleep apnea mask Suggest Ablating hallways and if stable and that he may be discharged within a few hours and follow with me in 1-2 weeks for a groin check ELIQUIS for 6 weeks, multaq for 6 weeks Patient Condition at Discharge: Stable Plan - Discharge Summary Discharge Rx Participant: No New Discharge Prescriptions: Continue Apixaban [Eliquis] 5 mg PO BID #60 tab Pravastatin Sodium [Pravachol] 20 mg PO QAM Multaq(Dose Unknown) 1 tab PO BID Ibuprofen [Motrin Ib] 200 mg PO DIRECTED PRN PRN Reason: Pain Barleylife 1 applicate PO DAILY Calcium Powder 1 applicate PO DAILY Discharge Medication List Apixaban [Eliquis] 5 mg PO BID #60 tab 09/20/17 [Rx] Pravastatin Sodium [Pravachol] 20 mg PO QAM 02/05/18 [History] Barleylife 1 applicate PO DAILY 04/28/18 [History] Calcium Powder 1 applicate PO DAILY 04/28/18 [History] Ibuprofen [Motrin Ib] 200 mg PO DIRECTED PRN 04/28/18 [History] Multaq(Dose Unknown) 1 tab PO BID 04/28/18 [History] Follow up Appointment(s)/Referral(s): Dontrell Barrios MD [STAFF PHYSICIAN] - 2 Weeks Activity/Diet/Wound Care/Special Instructions: Post EP study - Ablation instructions 1. Keep access sites dry for 2 days. 2. No heavy lifting or straining for 2 days. 3. Avoid bending the hips repeatedly for 2 days. 4. You may go up and down stairs slowly Call if the following is noted 1. Bleeding, increasing swelling or pain at the access sites. 2. Increasing chest discomfort, especially upon taking a deep breath. 3. Increasing shortness of breath, at rest or with exertion. 4. Undue cough / phlegm 5. Difficulty or pain while swallowing. 6. Pain or change in color in the extremities. 7. Fever, chills, rigors. 8. Increasing headache or neurologic symptoms. 9. Dizziness, fainting, palpitations Stop multi-after 6 weeks Stop ELIQUIS after 6 weeks Discharge Disposition: HOME SELF-CARE
[2018-05-07 08:36] VITALS: RESP 16
[2018-05-07] MEDS ORDERED: PRAVASTATIN SODIUM 20 MG TAB PO SCH (09:00)
[2018-05-07 11:35] VITALS: BP 120/86; PULSE 77; TEMP 97.5
[2018-05-07] MEDS: DRONEDARONE 400 MG TAB PO SCH (13:08)
[2018-05-07] MEDS: APIXABAN 5 MG TAB PO SCH (13:08)
[2018-05-07] MEDS: LACTATED RINGERS 1,000 ML IV SCH (13:09)
[2018-05-07] MEDS: SODIUM CHLORIDE 0.9% 1,000 ML IV SCH (13:12)
== END 2018-05-07 14:02 | disposition home or self-care (01) ==
LOC: CATHEP 11:13 → 3OBS 15:58 → CATHEP 05-07 14:02
PROVIDERS: ATTEND Internal Medicine Clinical Cardiac Electrophysiology
DX: I48.92 Unspecified atrial flutter (principal); I47.1 Supraventricular tachycardia; Z79.01 Long term (current) use of anticoagulants; E78.5 Hyperlipidemia, unspecified; Z82.49 Family history of ischemic heart disease and other diseases of the circulatory system; G47.33 Obstructive sleep apnea (adult) (pediatric); Z99.89 Dependence on other enabling machines and devices; I71.9 Aortic aneurysm of unspecified site, without rupture; Z79.899 Other long term (current) drug therapy
CPT/HCPCS: 93623; 93662; 93613; 93653; C1894; C1769 ×2; C1730 ×3; C1759; C1893; C1732; J2250; J1200; J2710; J2001; J3010; J1644; J0131; J2370; J0330; J2704

== ENCOUNTER → 2019-01-06 | Outpatient (CLI) | payer MEDICAID ==
--- NOTE | 2019-01-06 15:33 | XR ---
EXAMINATION TYPE: XR lumbar spine 2 or 3V DATE OF EXAM: 01/06/2019 CLINICAL HISTORY: Low back pain. TECHNIQUE: Frontal and lateral images of the lumbar spine are obtained. COMPARISON: CTA aorta December 11, 2017 FINDINGS: There are 5 lumbar type vertebral bodies redemonstrated. The lumbar spine redemonstrates satisfactory alignment without evidence of acute fracture or dislocation. Vertebral body heights mathieu in within normal limits. There is mild disc space narrowing and anterior spurring L3-L4 level. There is mild to moderate disc space narrowing L5-S1 level. There is advanced disc space narrowing or ossif ic fusion S1 -S2 level. There is additional multiple level mild left-sided spurring. The overlying s oft tissue appears unremarkable. IMPRESSION: As above.
== END | disposition home or self-care (01) ==
LOC: RADXRMAIN 12:54
PROVIDERS: ATTEND Family Medicine
DX: M48.07 Spinal stenosis, lumbosacral region (principal)
CPT/HCPCS: 72100

== ENCOUNTER → 2019-05-10 | Outpatient (CLI) | payer MEDICAID ==
--- NOTE | 2019-05-10 14:41 | XR ---
EXAMINATION TYPE: XR lumbar spine 2 or 3V DATE OF EXAM: 05/10/2019 COMPARISON: 01/06/2019 HISTORY: Mid back pain and leg numbness TECHNIQUE: Three-view lumbar spine FINDINGS: There 5 lumbar-type vertebral bodies. Pedicles are intact. Mild disc space narrowing is pre sent L5-S1 posteriorly. Vertebral body heights are preserved. Alignment is normal. IMPRESSION: 1. Stable degenerative disc change L5-S1
== END | disposition home or self-care (01) ==
LOC: RADXRMAIN 14:21
PROVIDERS: ATTEND Emergency Medicine
DX: M47.817 Spondylosis without myelopathy or radiculopathy, lumbosacral region (principal)
CPT/HCPCS: 72100

== ENCOUNTER → 2019-05-16 | Outpatient (CLI) | payer OTHER ==
--- NOTE | 2019-05-17 00:05 | MR ---
EXAMINATION TYPE: MR lumbar spine wo con DATE OF EXAM: 05/16/2019 COMPARISON: None HISTORY: Low back pain, left side, x2 weeks while lifting, no prev injury TECHNIQUE: Multiplanar, multisequence images of the lumbar spine were acquired. Lumbar vertebra have normal alignment. There is mild narrowing of disc spaces throughout the lumbar s pine. There is small posterior disc bulging and herniation at L 2 3 L3-4 L4-5 L5-S1. There is develop mentally adequate spinal canal. There is no spinal stenosis. There is no lumbar paraspinal mass. Ther e is no compression fracture. Posterior elements appear intact. Sacroiliac joints appear intact. The neural foramina are fairly well-maintained. IMPRESSION: Mild multilevel spondylotic changes. Mild multilevel posterior disc bulging without spinal stenosis. No fracture.
== END | disposition home or self-care (01) ==
LOC: RADMRIMAIN 20:56
DX: M51.26 Other intervertebral disc displacement, lumbar region (principal); M51.27 Other intervertebral disc displacement, lumbosacral region; M47.816 Spondylosis without myelopathy or radiculopathy, lumbar region
CPT/HCPCS: 72148

== ENCOUNTER → 2019-06-14 | Outpatient (CLI) | payer MEDICAID ==
--- NOTE | 2019-06-14 12:48 | US ---
EXAMINATION TYPE: US abdomen complete DATE OF EXAM: 06/14/2019 COMPARISON: NONE CLINICAL HISTORY: R31.9 Hematuria, unspecified N28.1 Cyst of Kidney. MRI showed renal lesion. Micros copic hematuria. EXAM MEASUREMENTS: Liver Length: 14.5 cm Gallbladder Wall: 0.2 cm CBD: 0.4 cm Spleen: 10.4 cm Right Kidney: 9.1 x 4.9 x 5.2 cm Left Kidney: 10.2 x 4.2 x 4.8 cm Suboptimal visualization due to overlying bowel gas Pancreas: Head and tail not well visualized due to overlying bowel gas Liver: wnl, scanned through ribs Gallbladder: echogenic focus seen adjacent to wall - 0.3 x 0.2 cm. No definitive shadowing. Evidence for sonographic Young's sign: neg CBD: wnl Spleen: wnl Right Kidney: upper pole lateral simple cystic appearing lesion= 2.8 x 2.6 x 2.8 cm Left Kidney: wnl Upper IVC: wnl Abd Aorta: No AAA visualized The liver is homogenous. The intrahepatic portion of the IVC and proximal abdominal aorta are within normal limits. Common bile duct is unremarkable. The visualized portions of the pancreas are homoge nous. The spleen is unremarkable. Kidneys are symmetric and free of hydronephrosis. IMPRESSION: 1. Small nonshadowing 3 mm calculus within the gallbladder dependently versus small polyp. This is se en within the gallbladder body. No sonographic evidence of acute cholecystitis. 2. Benign-appearing right upper pole renal cyst. 3. Suboptimal visualization of the pancreas.
== END | disposition home or self-care (01) ==
LOC: RADUSWWP 11:03
PROVIDERS: ATTEND Family Medicine
DX: N28.1 Cyst of kidney, acquired (principal); R31.9 Hematuria, unspecified
CPT/HCPCS: 76700

== ENCOUNTER → 2019-07-21 | Outpatient (CLI) | payer MEDICAID ==
[2019-07-21 13:46] LABS: Appearance,Urine Clear (Clear); Bilirubin,Urine Negative (Negative); Blood,Urine Negative (Negative); Color,Urine Yellow; Glucose,Urine (UA) Negative (Negative); Ketones,Urine Negative (Negative); Leukocyte Esterase,Urine Negative (Negative); Nitrite,Urine Negative (Negative); PH, Urine 6.5 (5.0-8.0); Protein,Urine Negative (Negative); Specific Gravity,Urine 1.012 (1.001-1.035); Urobilinogen,Urine <2.0 mg/dL (<2.0)
== END | disposition home or self-care (01) ==
LOC: LABWHC1 07-20 16:22
PROVIDERS: ATTEND Internal Medicine Infectious Disease
DX: M27.2 Inflammatory conditions of jaws (principal); D72.829 Elevated white blood cell count, unspecified; N39.0 Urinary tract infection, site not specified
CPT/HCPCS: 36415; 81003; 84153; 86140

== ENCOUNTER → 2019-08-19 | Outpatient (CLI) | payer MEDICAID ==
--- NOTE | 2019-08-22 08:37 | PE ---
EXAMINATION TYPE: PET CT fusion skull to thigh DATE OF EXAM: 08/19/2019 COMPARISON: CT dated 12/11/[address] dated 08/05/2019 HISTORY: Lung nodule TECHNIQUE: Following the intravenous administration of 11.97 mCi of F-18 FDG, whole body images are performed from the skull base to the midthigh. Images are reviewed on the computer in the coronal, a xial, and sagittal planes. Reconstructed rotating images are created on independent workstation and reviewed on the computer. A localization and attenuation correction CT is performed in conjunction with the PET scan. SCAN: Initial treatment strategy. FINDINGS: Mediastinal background: 1.98 Abdominal background: 4.42 SKULL BASE AND NECK: There is avid focal uptake of the anterior right vallecula with asymmetric soft tissue on series 3 image 50 containing a calcification. This has a maximum SUV of 3.94. No hypermetabolic supraclavicular adenopathy or adenopathy in the neck. CHEST, MEDIASTINUM, AND HILAR REGION: Corresponding to the outside report there is a 1.2 x 1.5 x 1.6 cm pleural-based irregular nodule in the left lung base. This is seen on series 3 image 111 through 1 15. This has a maximum SUV of 3.02. Left mediastinal adenopathy is difficult to separate from the pulmonary vasculature in measurement bu t is hypermetabolic with a maximum SUV of 5.15. Small lymph nodes in the aorticopulmonary window monik ure up to 7 mm in short axis and has a maximum SUV of 2.72. ABDOMEN AND PELVIS: There is a hypermetabolic peripancreatic lymph node measuring 9 mm in short axis on series 3 image 145. This has a maximum SUV of. OSSEOUS STRUCTURES: No suspicious hypermetabolic uptake. OTHER CT: Moderate coronary artery calcifications. Heart is upper limits of normal in size. Too small to accurately characterize left hepatic lobe lesions are seen on image 132 and are markedly hypoatte nuated, likely cysts. These measure approximately 3 mm (2 in number. Scattered colonic diverticula ar e seen without pericolonic fat stranding. Urinary bladder demonstrates wall thickening, likely relate d to incomplete distention. Prostate gland is enlarged and heterogenous. Sclerotic lesion of approxim ately T5 does not demonstrate hypermetabolic activity. IMPRESSION: 1. Hypermetabolic left lower lobe pulmonary nodule is highly suspicious for neoplasm and should be co nsidered neoplasm until proven otherwise. Percutaneous biopsy would be recommended. 2. Mediastinal adenopathy is localized to the left hilar region and few small equivocal lymph nodes i n the aorticopulmonary window. No contralateral adenopathy nor supraclavicular adenopathy. 3. Solitary peripancreatic lymph node is hypermetabolic but would be low suspicion for metastasis fro m a primary lung lesion at this time. Surveillance could be recommended. 4. Focal hypermetabolic activity in the right anterior vallecula. Direct visualization is recommended .
== END | disposition home or self-care (01) ==
LOC: RADPETMAIN 15:43
PROVIDERS: ATTEND Internal Medicine Critical Care Medicine
DX: E88.89 Other specified metabolic disorders (principal); R91.1 Solitary pulmonary nodule; R59.0 Localized enlarged lymph nodes
CPT/HCPCS: 78815; A9552

== ENCOUNTER 2019-08-31 08:05 | Day surgery (SDC) | payer MEDICAID ==
[2019-08-31 08:39] LABS: Mean Platelet Volume 7.1; Platelet Count 246 k/uL (150-450)
[2019-08-31] MEDS ORDERED: ALPRAZolam 0.5 MG TAB PO STA (08:46)
[2019-08-31 08:53] LABS: Prothrombin Time 10.3 sec (9.0-12.0)
[2019-08-31 09:18] VITALS: TEMP 98.3
[2019-08-31 09:20] VITALS: PULSE 96
[2019-08-31 09:31] VITALS: BP 117/80; RESP 18
--- NOTE | 2019-08-31 11:07 | CT ---
EXAMINATION TYPE: CT discontinued procedure DATE OF EXAM: 08/31/2019 COMPARISON: Nuclear medicine PET/CT 08/19/2019, outside CT 08/05/2019 HISTORY: Lung mass CT DLP: 102 mGycm Automated exposure control for dose reduction was used. Limited scanning performed through the region of the patient's lung mass in preparation for lung biopsy FINDINGS: The previously identified confluent mass now shows appearance of less confluent density and multiple nodules. IMPRESSION: FINDINGS ARE FELT POSSIBLY TO REPRESENT GRANULOMATOUS DISEASE DUE TO THE CHANGE CONFIGURATION. BIOPSY NOT PERFORMED AT THIS TIME. FOLLOW-UP IS RECOMMENDED. CASE DISCUSSED WITH REFERRING CLINICIAN.
== END 2019-08-31 10:23 | disposition home or self-care (01) ==
LOC: RADPROMAIN 08:05
PROVIDERS: ATTEND Internal Medicine Critical Care Medicine
DX: R91.8 Other nonspecific abnormal finding of lung field (principal); Z53.8 Procedure and treatment not carried out for other reasons
CPT/HCPCS: 36415; 76380; 85049; 85610

== ENCOUNTER → 2019-09-05 | Outpatient (CLI) | payer MEDICAID ==
[2019-09-07 08:56] LABS: Angiotensin-1 Converting Enz. 19 U/L (8-52)
[2019-09-07 14:07] LABS: C-ANCA <1:20 Titer (<1:20)
== END | disposition home or self-care (01) ==
LOC: LABWHC1 12:25
PROVIDERS: ATTEND Internal Medicine Infectious Disease
DX: N39.0 Urinary tract infection, site not specified (principal); M27.2 Inflammatory conditions of jaws; D72.829 Elevated white blood cell count, unspecified
CPT/HCPCS: 36415; 82164; 85652; 86255; 86480; 86606; 86612; 86635; 86698

== ENCOUNTER → 2019-09-29 | Outpatient (CLI) | payer MEDICAID ==
[2019-09-29 15:57] LABS: Basophils # (A) 0.1 k/uL (0-0.2); Basophils % (A) 1 %; Eosinophils # (A) 0.1 k/uL (0-0.7); Eosinophils % (A) 1 %; HCT 41.1 % (39.0-53.0); HGB 14.1 gm/dL (13.0-17.5); Lymphocytes # (A) 1.7 k/uL (1.0-4.8); Lymphocytes % (A) 26 %; MCH 30.3 pg (25.0-35.0); MCHC 34.3 g/dL (31.0-37.0); MCV 88.3 fL (80.0-100.0); Mean Platelet Volume 7.6; Monocytes # (A) 0.4 k/uL (0-1.0); Monocytes % (A) 6 %; Neutrophils % (A) 61 %; Platelet Count 222 k/uL (150-450); RBC 4.65 m/uL (4.30-5.90); RDW 12.4 % (11.5-15.5); WBC 6.5 k/uL (3.8-10.6)
[2019-09-29 23:15] LABS: African American GFR (CKD) 98.5 (60.0-200.0); Albumin 4.3 g/dL (3.80-4.90); Albumin/Globulin Ratio 2.26 (1.60-3.17); Anion Gap 3.5 mmol/L (4.00-12.00); Calcium 9.3 mg/dL (8.7-10.3); Carbon Dioxide 33.5 mmol/L (21.6-31.8); Globulin 1.9 g/dL (1.6-3.3); Non-African American GFR(CKD) 84.9 (60.0-200.0); Total Bilirubin 0.6 mg/dL (0.2-1.2); Total Protein 6.2 g/dL (6.2-8.2)
== END | disposition home or self-care (01) ==
LOC: LABWHC1 15:30
PROVIDERS: ATTEND Internal Medicine Infectious Disease
DX: B39.2 Pulmonary histoplasmosis capsulati, unspecified (principal)
CPT/HCPCS: 36415; 80053; 85025

== ENCOUNTER → 2020-08-03 | Outpatient (CLI) | payer MEDICAID ==
[2020-08-03 16:15] LABS: Basophils # (A) 0.1 k/uL (0-0.2); Basophils % (A) 1 %; Eosinophils # (A) 0.2 k/uL (0-0.7); Eosinophils % (A) 3 %; HCT 44.8 % (39.0-53.0); HGB 15.3 gm/dL (13.0-17.5); Lymphocytes # (A) 1.6 k/uL (1.0-4.8); Lymphocytes % (A) 28 %; MCH 31.9 pg (25.0-35.0); MCHC 34.2 g/dL (31.0-37.0); MCV 93.4 fL (80.0-100.0); Mean Platelet Volume 7.4; Monocytes # (A) 0.4 k/uL (0-1.0); Monocytes % (A) 7 %; Neutrophils # (A) 3.4 k/uL (1.3-7.7); Neutrophils % (A) 57 %; Platelet Count 244 k/uL (150-450); RBC 4.79 m/uL (4.30-5.90); RDW 11.6 % (11.5-15.5); WBC 5.9 k/uL (3.8-10.6)
[2020-08-04 00:19] LABS: Erythrocyte Sedimentation Rate 5 mm/Hr (0-20)
[2020-08-04 01:26] LABS: African American GFR (CKD) 87.1 (60.0-200.0); BUN/Creat Ratio 24.55 Ratio (12.00-20.00); C Reactive Protein <0.4 mg/dL (0.0-0.8); Calcium 9.7 mg/dL (8.7-10.3); Carbon Dioxide 31.1 mmol/L (21.6-31.8); Chloride 99 mmol/L (96-109); Glucose 71 mg/dL (70-110); Non-African American GFR(CKD) 75.2 (60.0-200.0); Potassium 3.9 mmol/L (3.5-5.5); Sodium 139 mmol/L (135-145)
== END | disposition home or self-care (01) ==
LOC: LABWHC1 15:07
PROVIDERS: ATTEND Internal Medicine Infectious Disease
DX: B39.2 Pulmonary histoplasmosis capsulati, unspecified (principal)
CPT/HCPCS: 36415; 80048; 85025; 85652; 86140

== ENCOUNTER → 2020-08-08 | Outpatient (CLI) | payer MEDICAID ==
--- NOTE | 2020-08-08 09:59 | CT ---
EXAMINATION TYPE: CT chest w con DATE OF EXAM: 08/08/2020 COMPARISON: Chest December 04, 2017. PET CT August 19, 2019. HISTORY: follow up to pulmonary histoplasmosis CT DLP: 302.8 mGycm. Automated Exposure Control for Dose Reduction was Utilized. TECHNIQUE: CT scan of the thorax is performed following with IV Contrast, patient injected with 100 mL of Isovue 300. FINDINGS: LUNGS: Improved inspiration on current study. Stable 6 x 4 mm anterior right basilar atelectasis imag e 47 presumed benign. There are roughly 3 nodules in the left midlung near fissure on current study m easuring up to 6 x 6 mm in size axial images 27 through 29, these are enlarged in size from 2018 CT, smaller in size from 2019 PET/CT. Prior visualized 5 to 6 mm subpleural nodule in the anterior left u pper to mid lung axial image 100 PET/CT not clearly seen on this study. The largest lobulated nodule in the periphery of the left lower lobe measures 1.9 x 1.5 cm current study image 37 fairly similar t o prior study image 113. No definite new greater than 5 mm nodules or masses. MEDIASTINUM: There are persistent prominent left hilar lymph nodes of low density near axial image 30 without significant change from most recent PET/CT. No new greater than 1 cm bilateral hilar mediast inal lymph nodes. No cardiomegaly or 1pericardial effusion is seen. Moderate coronary artery calcif ication. OTHER: Simple appearing thin-walled 3.0 cm cyst upper pole right kidney redemonstrated. Mild multilev el spinal thoracic spine. IMPRESSION: Stable nodules and left hilar prominent lymph nodes from most recent PET/CT, patient had subsequent sampling with infection or histoplasmosis. No new or enlarging nodules or adenopathy noted .
== END | disposition home or self-care (01) ==
LOC: RADCTMAIN 09:10
PROVIDERS: ATTEND Internal Medicine Infectious Disease
DX: R91.8 Other nonspecific abnormal finding of lung field (principal); B39.2 Pulmonary histoplasmosis capsulati, unspecified
CPT/HCPCS: 71260; Q9967

== ENCOUNTER → 2020-08-13 | Outpatient (CLI) | payer MEDICAID ==
--- NOTE | 2020-08-14 10:00 | ECHOF ---
Referral Reason:SOB MEASUREMENTS -------- HEIGHT: 177.8 cm WEIGHT: 81.6 kg BP: 120/71 IVSd: 1.1 cm (0.6 - 1.1) LVIDd: 5.0 cm (3.9 - 5.3) LVPWd: 1.0 cm (0.6 - 1.1) IVSs: 1.8 cm LVIDs: 3.1 cm LVPWs: 1.5 cm LA Diam: 3.9 cm (2.7 - 3.8) RVIDd: 3.2 cm (< 3.3) LAESV Index (A-L): 23.76 ml/m Ao Diam: 4.0 cm (2.0 - 3.7) AV Cusp: 2.3 cm (1.5 - 2.6) EPSS: 0.4 cm MV E Thomas: 0.45 m/s MV DecT: 250 ms MV A Thomas: 0.45 m/s MV E/A Ratio: 1.00 RAP: 5.00 mmHg RVSP: 27.14 mmHg MV EF SLOPE: 126.95 mm/s (70 - 150) MV EXCURSION: 20.50 mm (> 18.000) TAPSE: 21.17 mm FINDINGS -------- Sinus rhythm. This was a technically good study. The left ventricular size is normal. Left ventricular wall thickness is normal. Overall left vent ricular systolic function is normal with, an EF between 60 - 65 %. The right ventricle is normal in size. Normal LA size by volume 22+/-6 ml/m2. The right atrium is normal in size. Interatrial and interventricular septum intact. The aortic valve is trileaflet and appears structurally normal. The mitral valve is normal. There is trace mitral regurgitation. Mild tricuspid regurgitation present. Right ventricular systolic pressure is normal at < 35 mmHg. Trace/mild (physiologic) pulmonic regurgitation. The aortic root is dilated measuring 4.0cm. Normal inferior vena cava with normal inspiratory collapse consistent with estimated right atrial pre ssure of 5 mmHg. There is no pericardial effusion. CONCLUSIONS -------- 1. The left ventricular size is normal. 2. Left ventricular wall thickness is normal. 3. Overall left ventricular systolic function is normal with, an EF between 60 - 65 %. 4. The aortic valve is trileaflet and appears structurally normal. 5. There is trace mitral regurgitation. 6. Mild tricuspid regurgitation present. 7. Trace/mild (physiologic) pulmonic regurgitation. 8. The aortic root is dilated measuring 4.0cm. 9. There is no pericardial effusion. MANAGER OF SELECTION AND ASSESSMENT: Anila Cowart RDCS
--- NOTE | 2020-08-20 11:24 | HM ---
24-hour Holter monitor shows sinus mechanism heart rates range from 55-141 beats a minute average 81 beats a minute Occasional PVCs When patient extends chest discomfort ECG was normal No atrial fibrillation No significant bradycardia MTDD
== END | disposition home or self-care (01) ==
LOC: RADECHMAIN 08:59
PROVIDERS: ATTEND Internal Medicine Clinical Cardiac Electrophysiology
DX: I07.1 Rheumatic tricuspid insufficiency (principal); I37.1 Nonrheumatic pulmonary valve insufficiency; I48.0 Paroxysmal atrial fibrillation
CPT/HCPCS: 93225; 93226; 93306

== ENCOUNTER → 2020-08-15 | Outpatient (CLI) | payer MEDICAID ==
--- NOTE | 2020-08-15 12:28 | P.STRESS ---
- Stress Test Note Stress Test Results/Findings: Exam Performed: stress echo exercise Exam Date: 08/15/20 Reason for Exam: cp Height: 5 ft 10 in Weight: 180 kg Protocol: STRESS ECHO Stage: V Duration of Exercise: 15.00 Resting Heart Rate: 79 Resting Blood Pressure: 140/101 Maximum Achieved Heart Rate: 176 Maximum Achieved Blood Pressure: 181/102 85% PMHR: 176 100% PMHR: 165 METS: 15.1 Technologist Comment: Stress Test Results/Findings: Baseline heart rate 79 beats a minute, Baseline blood pressure 140 100 mmHg The center ECG showed incomplete right bundle branch block pattern normal ST segments normal sinus rhythm Patient exercised on a Prosper protocol for 15 minutes Achieving a peak heart rate of 176 beats a minute Normal blood pressure response to exercise There is no ECG is with ischemia No exercise induced arrhythmias noted Baseline 2-D echo images showed normal LV systolic function without segmental wall motion abnormalities At peak exercise there was excellent augmentation of overall LV contractility without development of any wall motion abnormalities At recovery regional global LV systolic function within normal Impression excellent exercise capacity No ECG or echocardiographic evidence for ischemia.
== END | disposition home or self-care (01) ==
LOC: RADECHMAIN 10:38
PROVIDERS: ATTEND Internal Medicine Clinical Cardiac Electrophysiology
DX: G80.9 Cerebral palsy, unspecified (principal)
CPT/HCPCS: 93351

== ENCOUNTER → 2021-07-31 | Outpatient (CLI) | payer MEDICAID ==
--- NOTE | 2021-07-31 10:15 | CT ---
EXAMINATION TYPE: CT angio chest DATE OF EXAM: 07/31/2021 COMPARISON: 08/08/2020 HISTORY: ascending aorta dilatation CT DLP: 2327.2 mGycm CONTRAST: CTA thoracic aorta with 3-D reconstruction is performed and without and with IV Contrast, patient inj ected with 100 mL of Isovue 370. Contrast CTA of the thoracic aorta was performed from the lung apex through the upper abdomen. 3D re construction imaging obtained at a separate workstation. CT Chest: THORACIC AORTA: No evidence for thoracic aortic aneurysm. Mild atheromatous changes seen. Ascending t horacic aorta measures 3.6 cm AP dimension. Aortic arch and descending thoracic aorta are of normal c aliber. There is no evidence for dissection or periaortic collection. LUNGS: The lungs are clear and free of infiltrate or atelectasis. Pulmonary nodules left lung are red emonstrated with the largest within the left lower lobe measuring 1.5 cm versus 1.5 cm. Additional sm aller nodules measure 5 and 3 mm respectively. No new nodules identified. No pleural effusion or CT e vidence of interstitial lung disease. MEDIASTINUM: No evidence for mediastinal hematoma. The heart is not enlarged. No evidence for med iastinal mass or adenopathy. HILAR STRUCTURES: No evidence for mass. No hilar adenopathy is appreciated. OTHER: No significant abnormality. IMPRESSION- 1. No evidence for thoracic aortic aneurysm. 2. Stable left-sided pulmonary nodules.
== END | disposition home or self-care (01) ==
LOC: RADCTMAIN 08:36
PROVIDERS: ATTEND Nurse Practitioner Adult Health
DX: R91.8 Other nonspecific abnormal finding of lung field (principal)
CPT/HCPCS: 71275; Q9967

== ENCOUNTER → 2021-10-15 | Outpatient (CLI) | payer MEDICAID, OTHER | END | disposition home or self-care (01) | LOC: LABWHC1 05:37 | PROVIDERS: ATTEND Emergency Medicine | DX: U07.1 COVID-19 (principal) | CPT/HCPCS: 87635 ==

== ENCOUNTER → 2022-12-17 | Outpatient (CLI) | payer MEDICAID ==
--- NOTE | 2022-12-18 11:26 | CA ---
Transthoracic Echo Report Name: Rene Neves Age: 57 Gender: M : 1965 Exam Date: 12/17/2022 09:50 Exam Location: [facility] Ht (in): 70 Wt (lb): 185 Ordering Physician: Dontrell Barrios MD ([id number]) Attending/Referring Phys: It Engineer Macie Arndt RDCS Procedure CPT: Indications: sob Cardiac Hx: Technical Quality: Fair Contrast 1: Total Dose (mL): Contrast 2: Total Dose (mL): MEASUREMENTS (Male / Female) Normal Values 2D ECHO LV Diastolic Diameter PLAX 4.3 cm 4.2 - 5.9 / 3.9 - 5.3 cm IVS Diastolic Thickness 1.4 cm 0.6 - 1.0 / 0.6 - 0.9 cm LVPW Diastolic Thickness 1.2 cm 0.6 - 1.0 / 0.6 - 0.9 cm LV Relative Wall Thickness 0.6 RV Internal Dim ED PLAX 3.4 cm LA Volume 62.0 cm??? 18 - 58 / 22 - 52 cm??? M-MODE Aortic Root Diameter MM 3.7 cm LA Systolic Diameter MM 4.3 cm LA Ao Ratio MM 1.2 AV Cusp Separation MM 2.5 cm DOPPLER AV Peak Velocity 100.6 cm/s AV Peak Gradient 4.1 mmHg AV Mean Velocity 69.6 cm/s AV Mean Gradient 2.2 mmHg AV Velocity Time Integral 17.8 cm LVOT Peak Velocity 82.5 cm/s LVOT Peak Gradient 2.7 mmHg LVOT Velocity Time Integral 17.2 cm MV Area PHT 2.6 cm??? Mitral E Point Velocity 39.9 cm/s Mitral A Point Velocity 60.0 cm/s Mitral E to A Ratio 0.7 MV Deceleration Time 289.3 ms MV E' Velocity 4.9 cm/s Mitral E to MV E' Ratio 8.2 TR Peak Velocity 174.7 cm/s TR Peak Gradient 12.2 mmHg Right Ventricular Systolic Press 17.2 mmHg FINDINGS Left Ventricle Moderately increased septal wall thickness. Normal left ventricular systolic function with no obvious regional wall motion abnormalities. Left ventricular cavity size normal. Normal left ventricular diastolic filling pattern. Right Ventricle Normal right ventricular size and function. Right ventricular systolic pressure within normal limits. Right Atrium Normal right atrial size. Left Atrium Mildly increased left atrial volume. Mitral Valve Structurally normal mitral valve. No mitral stenosis. Trace to mild mitral regurgitation. Aortic Valve Trileaflet aortic valve. No aortic valve stenosis or regurgitation. Tricuspid Valve Structurally normal tricuspid valve. Trace to mild tricuspid regurgitation. Pulmonic Valve Structurally normal pulmonic valve. Pericardium No pericardial effusion. Aorta Aortic dilatation, measured at 4.2 cm. CONCLUSIONS Low normal left ventricular systolic function. The EF is about 50% Normal mitral valve apparatus with mild MR only Normal aortic valve with no stenosis or regurgitation Normal pulmonary artery systolic pressure Previewed by: Dr. Darien Rodriguez MD (Electronically Signed) Final Date: 18 December 2022 11:25
--- NOTE | 2022-12-19 11:06 | CA ---
Stress Echo Report Rene Neves Age: 57 Gender: M : 1965 Exam Date: 12/17/2022 11:28 Exam Location: [facility] Ht (in): 70 Wt (lb): 185 Ordering Physician: Dontrell Barrios MD ([id number]) Referring Physician: OBDULIA, Cake Press Operator Helper: TODD Technologist Procedure CPT: Indication: sob ICD-9 Codes: Rhythm: Patient History: CHEST PAIN, DIFFICULTY IN BREATHING, ELEVATED CHOLESTEROL, FAMILY HX OF HEART DISEASE, PRIOR CATH Cardiac Medications: CRESTOR Medications in past 24 hours: Contrast: Stress Results Protocol: Prosper Total dose(mL): Exercise Duration (min:sec): 14:[address] Depression (mm): Angina Score: Romeo Score: METS: 14.7 Resting HR: 69 Resting BP: 134 / 104 Peak HR: 164 Peak BP: 238 / 109 Max Predicted HR: 163 101 % Max Predicted HR Target HR: 139 Double Product: [id number] Stress Summary: BP Response: Reason for Termination: MAX EXERTION/TARGET HR Cardiac Symptoms: CHEST PAIN ECG Analysis Resting ECG: Stress ECG: Arrhythmia: Echo Analysis Resting Echo: Peak Echo Analysis: MEASUREMENTS (Male/Female) Normal Values CONCLUSIONS Excellent exercise tolerance Normal EKG and echo in response to exercise Dr. Darien Rodriguez MD (Electronically Signed) Final Date: 19 December 2022 11:04
== END | disposition home or self-care (01) ==
LOC: RADECHMAIN 09:01
PROVIDERS: ATTEND Internal Medicine Clinical Cardiac Electrophysiology
DX: I34.0 Nonrheumatic mitral (valve) insufficiency (principal); E78.00 Pure hypercholesterolemia, unspecified; R06.02 Shortness of breath
CPT/HCPCS: 93225; 93226; 93306; 93351

== ENCOUNTER 2023-12-08 09:44 | Day surgery (SDC) | payer MEDICAID ==
[2023-12-03 15:31] VITALS: BMI 26.4
[~2023-12-08 09:44] MED LIST: LACTATED RINGERS 1,000 ML IV SCH; LIDOCAINE 1% (10MG/ML) FOR IV START INTRADERMA PRN
[2023-12-08] MEDS: LACTATED RINGERS 1,000 ML IV ONE (10:15)
[2023-12-08 10:23] VITALS: TEMP 97.2
[2023-12-08] MEDS ORDERED: LIDOCAINE 1% INJ 10MG/ML (20 ML MDV) ONE (11:12)
[2023-12-08] MEDS ORDERED: PROPOFOL 10 MG/ML 20 ML VIAL IV ONE (11:12)
--- NOTE | 2023-12-08 11:16 | P.GSHP ---
History of Present Illness H&P Date: 12/08/23 Chief Complaint: Colon cancer screening 58-year-old male here for colonoscopy. He has not had one previously. No bowel complaints. Family history of a small bowel cancer in his mother. Past Medical History Past Medical History: Atrial Fibrillation, Atrial Flutter, Hyperlipidemia, Sleep Apnea/CPAP/BIPAP Additional Past Medical History / Comment(s): CARMELLA without device, aortic aneurysm. Left lung lesion being investigated booked for biopsy 08/30 History of Any Multi-Drug Resistant Organisms: None Reported Past Surgical History: Cardiac Ablation, Tonsillectomy Additional Past Surgical History / Comment(s): A fib ablation 12/03/17, A flutter ablation 09/24/17 Past Anesthesia/Blood Transfusion Reactions: No Reported Reaction Additional Past Anesthesia/Blood Transfusion Reaction / Comment(s): no blood transfusion Smoking Status: Never smoker - Past Family History Father Additional Family Medical History / Comment(s): . Mother Family Medical History: Cancer Additional Family Medical History / Comment(s): Bowel CA Medications and Allergies Home Medications Medication Instructions Recorded Confirmed Type Barleylife 1 applicate PO DAILY 04/28/18 12/08/23 History Ibuprofen [Motrin Ib] 200 mg PO DIRECTED PRN 04/28/18 12/08/23 History Cholecalciferol (Vitamin D3) 2,000 unit PO DAILY 08/25/19 12/08/23 History [Vitamin D3] Rosuvastatin [Crestor] 10 mg PO DAILY 12/03/23 12/08/23 History Allergies Allergy/AdvReac Type Severity Reaction Status Date / Time No Known Allergies Allergy Verified 12/08/23 10:16 Surgical - Exam Vital Signs Temp Pulse 97.2 F L 82 12/08/23 10:18 12/08/23 10:18 Physical exam: General: Well-developed, well-nourished HEENT: Normocephalic, sclerae nonicteric Abdomen: Nontender, nondistended Extremities: No edema Neuro: Alert and oriented Assessment and Plan (1) Colon cancer screening Narrative/Plan: Will proceed with colonoscopy at this time. Current Visit: Yes Status: Acute Code(s): Z12.11 - ENCOUNTER FOR SCREENING FOR MALIGNANT NEOPLASM OF COLON SNOMED Code(s): 053419685
--- NOTE | 2023-12-08 11:35 | P.PCN ---
Date of Procedure: 12/08/23 Procedure(s) Performed: PREOPERATIVE DIAGNOSIS: Colon cancer screening POSTOPERATIVE DIAGNOSIS: Rectal mass, rectal polyp, diverticulosis, melanosis coli PROCEDURE: Colonoscopy with snare polypectomy and cold biopsy ANESTHESIA: MAC SURGEON: Felix Aguilera M.D. SPECIMENS: Rectal polyp, rectal mass ENDOSCOPIC PROCEDURE: The patient was placed on the endoscopy table in the left decubitus position. The Olympus colonoscope was inserted into the anus and passed under direct visualization to the base of the cecum. The appendiceal orifice was visualized. From that point the scope was slowly withdrawn inspecting all surfaces carefully. There were no neoplastic inflammatory or polypoid lesions throughout the cecum, ascending, transverse, descending, and sigmoid colon. In the rectum proximally was a very small polyp removed using the snare with cautery technique. In the distal rectum anteriorly there was a 3 cm noncircumferential mass. This was friable and ulcerated. This had a neoplastic appearance. Numerous biopsies with a cold biopsy forceps were taken. This was able to be palpated easily on digital rectal examination in the anterior position. The base of this was felt to be approximately 1.5 to 2 cm and the overall size of the mass was approximately 3 to 3.5 cm. This only took up approximately 20% of the circumference. This was at the distal rectum abutting the dentate line. The patient had extensive diverticulosis throughout the colon. The patient also had fairly impressive melanosis coli diffusely. The patient was taken to the recovery room in stable condition per anesthesia guidelines. RECOMMENDATIONS: Await biopsy results. Will discuss colorectal surgery consultation with patient. Based on pathology findings may require oncologic consult and pelvic MRI.
[2023-12-08 12:06] VITALS: BP 128/91; PULSE 71; RESP 20
== END 2023-12-08 12:37 | disposition home or self-care (01) ==
LOC: ORWHC2ENDO 09:44
PROVIDERS: ATTEND Surgery
DX: Z12.11 Encounter for screening for malignant neoplasm of colon (principal); C20 Malignant neoplasm of rectum; D12.8 Benign neoplasm of rectum; K62.1 Rectal polyp; K57.30 Diverticulosis of large intestine without perforation or abscess without bleeding; K63.89 Other specified diseases of intestine; Z80.0 Family history of malignant neoplasm of digestive organs; Z79.899 Other long term (current) drug therapy
CPT/HCPCS: 88305; 88342; 88341; 45380; 45385; J2001; J2704

== ENCOUNTER → 2023-12-15 | Outpatient (CLI) | payer MEDICAID ==
--- NOTE | 2023-12-16 11:22 | MR ---
EXAMINATION TYPE: MR Rectal wo/w con DATE OF EXAM: 12/15/2023 1:33 PM CLINICAL INDICATION:Male, 58 years old with history of C20 MALIGNANT NEOPLASM OF RECTUM; PHH, Rectal malignancy COMPARISON: PET 08/19/2019 TECHNIQUE: Multiplanar, multisequence imaging was performed on a 3T MR scanner with optimized small f ield of view imaging of the rectum. Orthogonal high resolution T2 weighted imaging was obtained thro ugh the rectal mass with additional sequences including T1 weighted images and diffusion weighted sheila ging. IV CONTRAST: 8.5GadavistNone. FINDINGS: IMAGE QUALITY: Adequate PRIMARY TUMOR: MORPHOLOGY, LOCATION, AND CHARACTERISTICS: Distance to anal verge: 3.0 cm Distance to top of anal sphincter complex/anorectal junction: 0.0 cm Relationship to the anterior peritoneal reflection: below Craniocaudal length: 3.2 cm Circumferential location (o'clock position): 11 o'clock to 4 o'clock Morphology: Polypoid Mucinous: No MRI Rectal Cancer T Category: T1/T2 (tumor confined to rectal wall). There is no invasion of adjace nt structures. FOR LOW RECTAL TUMORS - Invasion of anal sphincter complex Invades internal sphincter only Level of invasion: Upper anal canal EXTRAMURAL VENOUS INVASION (EMVI): No CIRCUMFERENTIAL RESECTION MARGIN (for T3 only) Shortest distance of tumor to MRF (or anticipated CRM): N/A mm (location) (not applicable if tumor at peritonealized portion of the rectum) Is there a separate tumor deposit, lymph node, or EMVI threatening (> 1 mm and < 2 mm) or invading (< 1 mm) the mesorectal fascia (MRF) (if yes, note location): N/A LYMPH NODES: Mesorectal/superior rectal lymph nodes and/or tumor deposits: Single nonenlarged prominent lymph node measuring 3 mm in short axis series 601 image 25 in the left mesorectal fascia. This is superior to the tumor. *Suspicious morphologic criteria: (1) round shape, (2) irregular borders, (3) heterogenous signal int ensity Superior most suspicious lymph node/deposit is located: Series 601 image 25 slightly superior to the tumor in the mesorectal fascia on the left. Extra-mesorectal lymph nodes: any suspicious: No. (mesorectal, superior rectal, middle rectal, inferior rectal, sigmoid mesenteric, inferior mesenteric , lateral sacral, presacral, sacral promontory) Locoregional: internal iliac, obturator M1: external iliac, common iliac, inguinal, retroperitoneal IMPRESSION: T Stage: T1/T2 (tumor confined to rectal wall). N Stage: N0 (no visible lymph nodes/deposits, no lymph nodes in the criteria however there is a 3 mm prominent lymph node present. CRM: Clear Sphincter Involvement: Yes Suspicious extramesorectal nodes: No
== END | disposition home or self-care (01) ==
LOC: RADMRIMAIN 12:00
PROVIDERS: ATTEND Internal Medicine Hematology & Oncology
DX: C20 Malignant neoplasm of rectum (principal)
CPT/HCPCS: 72197; A9585

== ENCOUNTER → 2023-12-23 | Outpatient (CLI) | payer MEDICAID ==
--- NOTE | 2023-12-23 11:08 | CT ---
EXAMINATION TYPE: CT ChestAbdPelvis w con DATE OF EXAM: 12/23/2023 COMPARISON: Chest 07/31/2021 and prior PET/CT 08/19/2019 HISTORY: 58-year-old male C20, rectal CA, staging TECHNIQUE: Contiguous axial scanning of the chest, abdomen, and pelvis performed with IV Contrast, pa tient injected with 100 mL of Isovue 300. Delayed images through the kidneys were obtained. Coronal/s agittal reconstructions performed. CT DLP: 1048.2 mGycm Automated exposure control for dose reduction was used. FINDINGS: CHEST: Heart is normal size without pericardial effusion. LAD coronary artery calcification. Ectatic aortic root at 3.9 cm, unchanged. Complex large vessel branching anatomy. 1.3 cm left hilar lymph node. Measured 1.5 cm on 07/31/2021. Otherwise, no thoracic lymph adenopathy by CT size criteria. Strandy dependent atelectasis. 1.7 cm subpleural nodule periphery of the left lower lobe remains unchanged from 202. Some punctate calcifications are present within. Probable granuloma. Additional scattered pulmonary nodules measuri ng 5 mm and smaller remain unchanged from 202. No new suspicious pulmonary nodule is seen. No consolidation or pleural effusion. ABDOMEN: Small hiatal hernia. A few scattered small hepatic cysts measuring up to 8 mm are unchanged. Portal v enous system is patent. No biliary ductal dilatation. 2.4 cm diverticulum of the second portion of the duodenum projecting into the pancreatic head region. No abnormal gallbladder distention. Adrenal glands, left kidney, spleen, and pancreas within normal limits. Upper pole renal cortical cyst on the right measuring 4.4 cm. A few scattered small retroperitoneal nodes measuring up to 8 mm appear unchanged. Small 1.5 cm fatty umbilical hernia. No dilated small bowel, free fluid, or free air. Normal appendix. Oral contrast progressed into the sigmoid colon. Moderate scattered stool burden. Le ft-sided colonic diverticulosis. No pericolonic inflammatory change. Patient's polypoid lower rectal mass is redemonstrated along the anterior wall, estimated to measure 2.[address] Please refer to recent rectal MRI for more detailed evaluation. PELVIS: Prostate gland enlargement 5.0 cm wide. Bladder is urine distended. There are 3 mm left perirectal ly mph node mentioned on recent MRI is not apparent by CT. Ectasia of the distal left common iliac artery at 1.8 cm. No pelvic adenopathy by size criteria. No a bnormal fluid collection. BONES: Mild degenerative change of the hips. Moderate to advanced degenerative disc disease L5-S1 and facet arthropathy lower lumbar spine. Osseous destructive process seen. IMPRESSION: 1. POLYPOID LOW RECTAL MASS ALONG THE ANTERIOR WALL ESTIMATED TO MEASURE 2.[address] REFER TO [facility] RECTAL MRI FOR MORE DETAILED EVALUATION. 2. A FEW SCATTERED PULMONARY NODULES MEASURING UP TO 1.7 CM REMAIN UNCHANGED BACK TO 07/31/2021. 3. LEFT HILAR LYMPH NODE MEASURES 1.3 CM VERSUS 1.5 CM BACK IN 2020. 4. NO OTHER FINDINGS OF METASTATIC DISEASE. 5. SMALL HIATAL HERNIA, LEFT-SIDED COLONIC DIVERTICULOSIS, AND PROSTATOMEGALY AT 5.0 CM WIDE.
== END | disposition home or self-care (01) ==
LOC: RADCTMAIN 08:22
PROVIDERS: ATTEND Surgery
DX: C20 Malignant neoplasm of rectum (principal); N40.0 Benign prostatic hyperplasia without lower urinary tract symptoms; K57.30 Diverticulosis of large intestine without perforation or abscess without bleeding; K62.89 Other specified diseases of anus and rectum; K44.9 Diaphragmatic hernia without obstruction or gangrene
CPT/HCPCS: 71260; 74177; Q9967

== ENCOUNTER → 2024-02-16 | Outpatient (CLI) | payer MEDICAID | END | disposition home or self-care (01) | LOC: LABWHC1 15:20 | PROVIDERS: ATTEND Internal Medicine Clinical Cardiac Electrophysiology | DX: I48.92 Unspecified atrial flutter (principal) | CPT/HCPCS: 36415; 93005 ==

== ENCOUNTER → 2024-02-23 | Outpatient (CLI) | payer MEDICAID | END | disposition home or self-care (01) | LOC: LABWHC1 13:51 | PROVIDERS: ATTEND Internal Medicine Clinical Cardiac Electrophysiology | DX: I48.92 Unspecified atrial flutter (principal) | CPT/HCPCS: 36415; 93005 ==

== ENCOUNTER → 2024-05-26 | Outpatient (CLI) | payer MEDICAID ==
--- NOTE | 2024-06-14 16:36 | MR ---
Patient: Rene Neves C Ordering Physician: Unknown, Unknown ID: [id number] Phone, Pager: Phone: N/ A Pager: N/A : 1965 Age/Gender: 58Y, M Primary Location: N/A Procedure: MRI RECTAL W/WO CONT RAST Study Date: 05/26/2024 10:48:50 AM EXAMINATION TYPE: MR Rectal wo/w con DATE OF EXAM: 05/29/2024 7:45 AM CLINICAL INDICATION: Rectal cancer follow-up. COMPARISON: 12/15/2023. TECHNIQUE: Multiplanar, multisequence imaging was performed on a 3T MR scanner with optimized small f ield of view imaging of the rectum. Orthogonal high resolution T2 weighted imaging was obtained thro ugh the rectal mass with additional sequences including T1 weighted images and diffusion weighted sheila ging. IV CONTRAST: 9 cc Gadavist . FINDINGS: IMAGE QUALITY: Adequate PRIMARY TUMOR: MORPHOLOGY, LOCATION, AND CHARACTERISTICS: Prior tumor 5.2 cm from the anal verge on prior is no longer visualized. No evidence for invasion of anal sphincter complex. No evidence for extraluminal venous invasion. Mesorectal fascia lymph node se en on series 404 image 312 is poorly visualized measures less than 3 mm and diffusion weighted imagin g. No other suspicious lymph nodes identified. No suspicious postcontrast enhancement. IMPRESSION: Positive response to therapy with decrease in tumor size now undetectable. No suspicious lymph nodes or evidence for metastatic disease.
== END | disposition home or self-care (01) ==
LOC: RADMRIMAIN 11:45
PROVIDERS: ATTEND Surgery
DX: C20 Malignant neoplasm of rectum (principal)
CPT/HCPCS: 72197; A9585

== ENCOUNTER → 2024-09-13 | Outpatient (CLI) | payer MEDICAID ==
[2024-09-13 10:22] LABS: Basophils # (A) 0.06 X 10*3/uL (0.00-0.10); Basophils % (A) 1.4 %; Eosinophils # (A) 0.16 X 10*3/uL (0.04-0.35); Eosinophils % (A) 3.8 %; HCT 42.7 % (39.6-50.0); HGB 14.2 g/dL (13.0-17.0); Lymphocytes # (A) 0.78 X 10*3/uL (0.90-5.00); Lymphocytes % (A) 18.7 %; MCH 29.7 pg (27.0-32.0); MCHC 33.3 g/dL (32.0-37.0); MCV 89.3 FL (80.0-97.0); Monocytes # (A) 0.42 X 10*3/uL (0.20-1.00); NRBC Per 100 WBC 0 X 10*3/uL (0.00-0.01); Neutrophils # (A) 2.73 X 10*3/uL (1.80-7.70); Neutrophils % (A) 65.4 %; Platelet Count 226 X 10*3/uL (140-440); RBC 4.78 X 10*6/uL (4.40-5.60); RDW 12.2 % (11.5-14.5); WBC 4.18 X 10*3/uL (4.50-10.00)
[2024-09-13 11:02] LABS: ALT 19 U/L (10-49); AST 20 U/L (14-35); Albumin 4.4 g/dL (3.8-4.9); Albumin/Globulin Ratio 1.91 Ratio (1.60-3.17); Alkaline Phosphatase 65 U/L (41-126); BUN/Creat Ratio 23.78 Ratio (12.00-20.00); Blood Urea Nitrogen 21.4 mg/dL (9.0-27.0); Calcium 9.4 mg/dL (8.7-10.3); Carbon Dioxide 24.9 mmol/L (21.6-31.8); Chloride 104 mmol/L (96-109); Chol/HDL Ratio 4.14 Ratio; Globulin 2.3 g/dL (1.6-3.3); Glucose 115 mg/dL (70-110); LDL Cholesterol,Calculated 150.9 mg/dL (0.0-131.0); Potassium 4.7 mmol/L (3.5-5.5); Prostate Specific Antigen 1.06 ng/mL (0.000-3.500); Sodium 141 mmol/L (135-145); Total Bilirubin <0.2 mg/dL (0.3-1.2); Total Protein 6.7 g/dL (6.2-8.2)
== END | disposition home or self-care (01) ==
LOC: LABWHC1 07:06
PROVIDERS: ATTEND Family Medicine
DX: Z00.00 Encounter for general adult medical examination without abnormal findings (principal); Z13.228 Encounter for screening for other metabolic disorders; Z12.5 Encounter for screening for malignant neoplasm of prostate; E78.5 Hyperlipidemia, unspecified
CPT/HCPCS: 36415; 80053; 80061; 82306; 83036; 84153; 84443; 85025

== ENCOUNTER → 2024-09-23 | Outpatient (CLI) | payer MEDICAID ==
--- NOTE | 2024-09-23 17:27 | MR ---
EXAMINATION TYPE: MR lumbar spine wo/w con DATE OF EXAM: 09/23/2024 3:57 PM COMPARISON: 05/16/2019. CLINICAL INDICATION: Male, 59 years old with history of M54.59 OTHER LOW BACK PAIN, Low back pain, Hx rectal cancer TECHNIQUE: Multi planar, multi sequence imaging was performed utilizing: T1-weighted, T2-weighted, a nd turbo inversion recovery imaging of the lumbar spine. IV Contrast: 8.5 mL Gadobutrol (None, if empty) FINDINGS: Alignment: The lumbar vertebral bodies have preserved heights and alignment. Cord: The conus medullaris and the distal spinal cord appear unremarkable with regards to their signa l intensity and morphology. No abnormal postcontrast enhancement. Bones/Discs: T1/T2 signal within the sacrum likely from radiation fibrosis. There is mild reactive e tom around the L5-S1 disc space. Reactive postcontrast enhancement along the adjoining endplates of L5-S1. No other abnormal enhancement. T12-L1: No evidence of significant spinal canal stenosis or neural foraminal stenosis. L1-L2: No evidence of significant spinal canal stenosis or neural foraminal stenosis. L2-L3: Disc bulge and facet joint arthropathy result in mild spinal canal and mild bilateral neural f oraminal stenosis. L3-L4: Disc bulge and facet joint arthropathy result in mild spinal canal and mild bilateral neural f oraminal stenosis. L4-L5: Disc bulge and facet joint arthropathy result in mild spinal canal and mild to moderate bilate ral, right greater than left, neural foraminal stenosis. L5-S1: The disc has a rounded posterior morphology without significant spinal canal stenosis. Facet j oint arthropathy with moderate bilateral, right greater than left, neural foraminal stenosis. No significant spinal canal or neural foraminal stenosis in the remainder of the visualized levels. Other findings: None. IMPRESSION: 1. No definitive evidence of disc herniation or significant spinal canal stenosis. 2. No suspicious postcontrast enhancement. 3. Mild to moderate disc degeneration with associated osteoarthritic changes with moderate neural fo raminal stenosis at L4-L5 and L5-S1 slightly worse from 2019 at L4-L5. 4. Mild reactive edema along the L5-S1 disc space. 5. Osseous fibrotic changes to the sacrum correlate with history of radiation therapy. [facility], , 09/23/2024 5:24 PM
== END | disposition home or self-care (01) ==
LOC: RADMRIMAIN 14:57
PROVIDERS: ATTEND Orthopaedic Surgery Orthopaedic Surgery of the Spine
DX: M51.369 Other intervertebral disc degeneration, lumbar region without mention of lumbar back pain or lower extremity pain (principal); R60.9 Edema, unspecified; Z92.3 Personal history of irradiation; M99.73 Connective tissue and disc stenosis of intervertebral foramina of lumbar region
CPT/HCPCS: 72158; A9585

== ENCOUNTER → 2024-12-20 | Outpatient (CLI) | payer MEDICAID ==
--- NOTE | 2024-12-21 09:28 | MR ---
EXAMINATION TYPE: MR Rectal wo/w con DATE OF EXAM: 12/20/2024 4:54 PM COMPARISON: 12/15/2023, 05/26/2024. CLINICAL INDICATION: Male, 59 years old with history of Z85.048; PHH, Rectal cancer, Hx of rectal can cer surgery, TECHNIQUE: Multiplanar, multisequence imaging was performed on a 3T MR scanner with optimized small f ield of view imaging of the rectum. Orthogonal high resolution T2 weighted imaging was obtained thro ugh the rectal mass with additional sequences including T1 weighted images and diffusion weighted sheila ging. IV Contrast: 8.5 mL Gadobutrol. FINDINGS: IMAGE QUALITY: Adequate PRIMARY TUMOR: MORPHOLOGY, LOCATION, AND CHARACTERISTICS: Redemonstration of positive response to therapy with prior tumor 5.2 cm from the anal verge remaining not visualized. No evidence for invasion of anal sphincter complex. No evidence for extraluminal venous invasion. Mesorectal fascia lymph node seen on prior is no longer visualized. No enlarged lymph nodes of head. Diffusion weighted imaging. No other suspicious lymph nodes identified. No suspicious postcontrast en hancement. Bone marrow signal is is no evidence for metastatic disease. Transitional vertebrae at L5. Prostate g land is nonenlarged. No suspicious prostate lesion. Bladder wall is within normal limits. IMPRESSION: 1. Continued evidence of positive response to therapy with undetectable tumor seen on prior on 2023. 2. There remains no suspicious lymph nodes or evidence for metastatic disease. [facility], , 12/21/2024 9:25 AM
== END | disposition home or self-care (01) ==
LOC: RADMRIMAIN 15:29
PROVIDERS: ATTEND Surgery
DX: Z85.048 Personal history of other malignant neoplasm of rectum, rectosigmoid junction, and anus (principal)
CPT/HCPCS: 72197; A9585

== ENCOUNTER → 2025-04-27 | Outpatient (CLI) | payer MEDICAID ==
--- NOTE | 2025-04-27 13:53 | CA ---
Transthoracic Echo Report Name: Rene Neves Age: 59 Gender: M : 1965 Exam Date: 04/27/2025 07:08 Exam Location: [facility] Ht (in): 70 Wt (lb): 190 Ordering Physician: Dontrell Barrios MD ([id number]) Attending/Referring Phys: Pharmacy Sales Representative Nicho Chávez, JEFF Procedure CPT: Indications: PAF, Atrial fibrillation Cardiac Hx: Technical Quality: Good Contrast 1: Total Dose (mL): Contrast 2: Total Dose (mL): MEASUREMENTS (Male / Female) Normal Values 2D ECHO LV Diastolic Diameter PLAX 5.1 cm 4.2 - 5.9 / 3.9 - 5.3 cm LV Systolic Diameter PLAX 3.4 cm IVS Diastolic Thickness 1.0 cm 0.6 - 1.0 / 0.6 - 0.9 cm LVPW Diastolic Thickness 1.0 cm 0.6 - 1.0 / 0.6 - 0.9 cm LV Relative Wall Thickness 0.4 RV Internal Dim ED PLAX 4.2 cm LVOT Diameter 2.0 cm LA Systolic Diameter LX 4.4 cm 3.0 - 4.0 / 2.7 - 3.8 cm LV Diastolic Volume MOD BP 105.8 cm??? 67 - 155 / 56 - 104 cm??? LV Systolic Volume MOD BP 44.1 cm??? 22 - 58 / 19 - 49 cm??? LV Ejection Fraction MOD BP 58.3 % >= 55 % LV Diastolic Volume MOD 4C 91.8 cm??? LV Systolic Volume MOD 4C 42.7 cm??? LV Ejection Fraction MOD 4C 53.5 % LV Diastolic Length 4C 7.6 cm LV Systolic Length 4C 6.9 cm LV Diastolic Volume MOD 2C 119.2 cm??? LV Systolic Volume MOD 2C 44.7 cm??? LV Ejection Fraction MOD 2C 62.5 % LV Diastolic Length 2C 7.8 cm LV Systolic Length 2C 6.8 cm LA Volume 67.4 cm??? 18 - 58 / 22 - 52 cm??? LA Volume Index 32.5 cm???/m??? 16 - 28 cm???/m??? DOPPLER MV Area PHT 3.7 cm??? Mitral E Point Velocity 49.8 cm/s Mitral A Point Velocity 49.8 cm/s Mitral E to A Ratio 1.0 MV Deceleration Time 207.2 ms TR Peak Velocity 195.9 cm/s TR Peak Gradient 15.3 mmHg Right Atrial Pressure 10.0 mmHg Pulmonary Artery Systolic Pressu 25.3 mmHg Right Ventricular Systolic Press 25.3 mmHg FINDINGS Left Ventricle Left ventricular ejection fraction is estimated at 55-60%. Normal left ventricular systolic function with no obvious regional wall motion abnormalities. Left ventricular cavity size normal. Left ventricular wall thickness normal. Right Ventricle Normal right ventricular size and function. Right ventricular systolic pressure within normal limits. Right Atrium Normal right atrial size. Left Atrium Mildly increased left atrial diameter. Mildly increased left atrial volume. Mitral Valve Mitral annular calcification. No mitral stenosis. Trace mitral regurgitation. Aortic Valve Trileaflet aortic valve. Aortic valve sclerosis. No aortic stenosis. No aortic regurgitation. Tricuspid Valve Structurally normal tricuspid valve. No tricuspid stenosis. Trace tricuspid regurgitation. Pulmonic Valve Structurally normal pulmonic valve. No pulmonic stenosis. Trace pulmonic regurgitation. Pericardium No pericardial effusion. Aorta Mild aortic dilatation at the level of the sinuses of valsalva (root). 4.0 cm CONCLUSIONS LVEF 55 to 60% No obvious regional wall motion abnormality Normal RV size and systolic function There is valvular dysfunction Mild left atrial dilatation Mildly dilated aortic root measured at 4.0 cm Previewed by: Dr Duane Barker (Electronically Signed) Final Date: 27 April 2025 09:45
== END | disposition home or self-care (01) ==
LOC: RADNMMAIN 06:59
PROVIDERS: ATTEND Internal Medicine Clinical Cardiac Electrophysiology
DX: I48.0 Paroxysmal atrial fibrillation (principal)
CPT/HCPCS: 93225; 93306